=== PATIENT | female | born 1960 | race Caucasian/White ===

== ENCOUNTER 2020-03-26 14:01 | Outpatient (CLI) | payer OTHER, SELFPAY ==
--- NOTE | 2020-03-26 14:11 | MM_ITS ---
WS: [id number] BILATERAL DIGITAL SCREENING MAMMOGRAPHY WITH CAD CLINICAL INFORMATION: SCREENING HISTORY: Screening mammogram. No current complaints. COMPARISON: 2011. TECHNIQUE: Bilateral CC and MLO views. FINDINGS: Scattered fibroglandular densities bilaterally. No suspicious focal mass, asymmetry, calcifications, or architectural distortion. No evidence of malignancy. Small isodense nodules in the inferior medial left breast unchanged since MM/[place] [id number] IMPRESSION: BI-RADS: 2-Benign FOLLOW UP: 1 Year Follow-up Recommend return to annual screening mammography.
== END 2020-03-26 14:02 | disposition home or self-care (01) ==
LOC: RADSHAW 14:07
PROVIDERS: PCP Internal Medicine; Visit Provider Nurse Practitioner Women's Health
DX: Z12.31 Encounter for screening mammogram for malignant neoplasm of breast (principal)
CPT/HCPCS: 77067

== ENCOUNTER 2020-06-11 14:47 | Outpatient (CLI) | payer OTHER, SELFPAY ==
--- NOTE | 2020-06-11 15:15 | XR_ITS ---
WS: [id number] SCREENING DEXA SCAN [facility] CLINICAL INFORMATION: postmenopausal COMPARISON: None. FINDINGS: The L1-L4 bone mineral density measures 1.424 g/cm2. This corresponds to a T score score of 2.0 and Z score of 2.5. Left femoral neck bone mineral density measures 1.19. This corresponds to a T score of 1.5 and Z scor e of 1.9. XR/XR DEXA axial skeleton* [id number] IMPRESSION: Normal bone mineralization. Patient's FRAX calculated 10 year probability for major osteoporotic fracture i s 5.6 % and osteoporotic hip fracture is 0.1%.
== END 2020-06-11 14:48 | disposition home or self-care (01) ==
LOC: RADWPI 14:50
PROVIDERS: PCP Internal Medicine; Visit Provider Nurse Practitioner Women's Health
DX: Z78.0 Asymptomatic menopausal state (principal)
CPT/HCPCS: 77080

== ENCOUNTER → 2021-12-28 08:14 | Outpatient (BNVA) | payer OTHER, SELFPAY | PROVIDERS: PCP Internal Medicine; Referring Provider Internal Medicine; Visit Provider Specialist | DX: M65.30 Trigger finger, unspecified finger (principal) | CPT/HCPCS: 73130 ==

== ENCOUNTER 2022-10-25 09:14 | Outpatient (CLI) | payer OTHER, SELFPAY ==
--- NOTE | 2022-10-25 09:20 | MM_ITS ---
WS: [id number] Bilateral screening 3D tomosynthesis digital mammogram, 10/25/2022 Clinical Data: SCREENING Comparison: 03/26/2020, 03/26/2016, 01/04/2014, 10/26/2011. Findings: The breast parenchymal pattern shows fibroglandular tissue. No spiculated masses or clustered calcifi cations are seen. There are no secondary signs of carcinoma. There are small lymph nodes in both axil la. MM/[place] [id number] Impression: 1. Negative bilateral mammogram unchanged. 2. Recommend annual screening mammograms. BIRADS: 1-Negative FOLLOW UP: 1 Year Follow-up The CAD insurance checker was used.
== END 2022-10-25 09:15 | disposition home or self-care (01) ==
LOC: RAD 09:17
PROVIDERS: PCP Internal Medicine; Visit Provider Nurse Practitioner Women's Health
DX: Z12.31 Encounter for screening mammogram for malignant neoplasm of breast (principal)
CPT/HCPCS: 77063; 77067

== ENCOUNTER 2023-10-26 13:03 | Outpatient (CLI) | payer OTHER, SELFPAY ==
--- NOTE | 2023-10-26 13:30 | XR_ITS ---
WS: [id number] DEXA (DUAL ENERGY X-RAY ABSORPTIOMETRY) Bone mineral density was performed using a Eventp[employer] machine. HISTORY: Z78.0 - Asymptomatic menopausal state COMPARISON: 06/11/2020 Lumbar spine BMD (L1-L4): 1.482 g/cm2 T score: 2.5 Z score: 3.2 Total hip BMD: Left: 1.149 (g/cm2). T score: 1.1 (no units) Z score: 1.7 (no units) 10 year probability of a major osteoporotic fracture is 6.3%. Compared to the prior study from 06/11/2020. Lumbar spine bone mineral density has increased by 4.1%. LEFT hip bone mineral density has decreased by 3.6%. IMPRESSION: NORMAL BONE MINERAL DENSITY based upon the WHO classification for females. Significant increase in bone mineral density within the lumbar spine since the prior study. Significant decrease in bone mineral density in the LEFT hip since the prior study.
--- NOTE | 2023-10-26 14:00 | MM_ITS ---
WS: [id number] BILATERAL 3D TOMOSYNTHESIS DIGITAL SCREENING MAMMOGRAPHY WITH CAD CLINICAL INFORMATION: Z12.31 - Encounter for screening mammogram for malignant ... HISTORY: Screening mammogram. No current complaints. COMPARISON: 2022 TECHNIQUE: Bilateral CC and MLO views. FINDINGS: Scattered fibroglandular densities bilaterally. No suspicious focal mass, asymmetry, calcifications, or architectural distortion. No evidence of malignancy. Stable nodularity and incidental LEFT intrama mmary lymph nodes. IMPRESSION: MM/[place] [id number] BI-RADS: 2-Benign FOLLOW UP: 1 Year Follow-up Recommend return to annual screening mammography.
== END 2023-10-26 13:04 | disposition home or self-care (01) ==
LOC: RAD 13:04
PROVIDERS: PCP Internal Medicine; Visit Provider Nurse Practitioner Women's Health
DX: Z12.31 Encounter for screening mammogram for malignant neoplasm of breast (principal); Z13.820 Encounter for screening for osteoporosis; R92.323 Mammographic fibroglandular density, bilateral breasts; Z78.0 Asymptomatic menopausal state
CPT/HCPCS: 77063; 77067; 77080

== ENCOUNTER → 2024-04-12 10:18 | Outpatient (BNVA) | payer MEDICARE, OTHER, SELFPAY | PROVIDERS: PCP Internal Medicine; Visit Provider Student in an Organized Health Care Education/Training Program | DX: M25.552 Pain in left hip (principal); M70.62 Trochanteric bursitis, left hip; M16.12 Unilateral primary osteoarthritis, left hip | CPT/HCPCS: 20610; 73523; 99204; J3301; J3490 ==

== ENCOUNTER 2024-04-23 06:00 | Outpatient (RCR) | payer MEDICARE, OTHER, SELFPAY | END 2024-04-28 18:00 | disposition home or self-care (01) | LOC: APT 06:00 | PROVIDERS: Visit Provider Student in an Organized Health Care Education/Training Program | DX: M70.72 Other bursitis of hip, left hip (principal) | CPT/HCPCS: 97110; 97161; 97530 ==

== ENCOUNTER 2024-04-29 06:00 | Outpatient (RCR) | payer MEDICARE, OTHER, SELFPAY | END 2024-05-28 23:59 | disposition home or self-care (01) | LOC: APT 06:00 | PROVIDERS: Visit Provider Student in an Organized Health Care Education/Training Program | DX: M70.72 Other bursitis of hip, left hip (principal) | CPT/HCPCS: 97110; 97112; 97530 ==

== ENCOUNTER → 2024-06-06 10:25 | Outpatient (BNVA) | payer MEDICARE, OTHER, SELFPAY | PROVIDERS: Visit Provider Podiatrist Foot & Ankle Surgery | DX: M79.671 Pain in right foot (principal); Q74.2 Other congenital malformations of lower limb(s), including pelvic girdle; L84 Corns and callosities; G57.61 Lesion of plantar nerve, right lower limb | CPT/HCPCS: 73630; 99204 ==

== ENCOUNTER → 2024-07-17 15:03 | Outpatient (BNVA) | payer MEDICARE, OTHER, SELFPAY | PROVIDERS: Visit Provider Student in an Organized Health Care Education/Training Program | DX: M25.552 Pain in left hip (principal); M16.12 Unilateral primary osteoarthritis, left hip | CPT/HCPCS: 99213 ==

== ENCOUNTER → 2024-08-17 08:13 | Outpatient (BNVA) | payer MEDICARE, OTHER, SELFPAY | PROVIDERS: PCP Family Medicine; Visit Provider Student in an Organized Health Care Education/Training Program | DX: M16.12 Unilateral primary osteoarthritis, left hip (principal) | CPT/HCPCS: 20610; 77002; J3301 ==

== ENCOUNTER → 2024-09-04 13:15 | Outpatient (BNVA) | payer MEDICARE, OTHER, SELFPAY | PROVIDERS: PCP Family Medicine; Visit Provider Podiatrist Foot & Ankle Surgery | DX: Q74.2 Other congenital malformations of lower limb(s), including pelvic girdle; L84 Corns and callosities; G57.61 Lesion of plantar nerve, right lower limb | CPT/HCPCS: 99213 ==

== ENCOUNTER → 2024-10-01 11:41 | Outpatient (BNVA) | payer MEDICARE, OTHER, SELFPAY | PROVIDERS: PCP Family Medicine; Visit Provider Family Medicine | DX: E11.65 Type 2 diabetes mellitus with hyperglycemia (principal); E78.2 Mixed hyperlipidemia; F41.9 Anxiety disorder, unspecified | CPT/HCPCS: 83036 ==

== ENCOUNTER → 2024-11-21 09:34 | Outpatient (BNVA) | payer MEDICARE, OTHER, SELFPAY | PROVIDERS: PCP Family Medicine; Visit Provider Student in an Organized Health Care Education/Training Program | DX: M16.12 Unilateral primary osteoarthritis, left hip (principal) | CPT/HCPCS: 99213 ==

== ENCOUNTER → 2024-12-24 11:28 | Outpatient (BNVA) | payer MEDICARE, OTHER, SELFPAY | PROVIDERS: PCP Family Medicine; Visit Provider Family Medicine | DX: E11.65 Type 2 diabetes mellitus with hyperglycemia (principal); E78.2 Mixed hyperlipidemia | CPT/HCPCS: 80053; 80061; 82607; 83036; 84443; 85025 ==

== ENCOUNTER 2025-01-27 05:00 | Outpatient (RCR) | payer MEDICARE, OTHER, SELFPAY | END 2025-02-25 23:59 | disposition home or self-care (01) | LOC: APT 05:00 | PROVIDERS: Visit Provider Student in an Organized Health Care Education/Training Program | DX: M25.511 Pain in right shoulder (principal) | CPT/HCPCS: 97110; 97112; 97140; 97161; 97530 ==

== ENCOUNTER → 2025-01-29 10:07 | Outpatient (BNVA) | payer MEDICARE, OTHER, SELFPAY | PROVIDERS: PCP Family Medicine; Visit Provider Student in an Organized Health Care Education/Training Program | DX: M25.511 Pain in right shoulder (principal); M75.41 Impingement syndrome of right shoulder | CPT/HCPCS: 20610; 73030; 99214; J3301; J9999 ==

== ENCOUNTER 2025-02-26 05:00 | Outpatient (RCR) | payer MEDICARE, OTHER, SELFPAY | END 2025-03-28 23:59 | disposition home or self-care (01) | LOC: APT 05:00 | PROVIDERS: Visit Provider Student in an Organized Health Care Education/Training Program | DX: M25.511 Pain in right shoulder (principal) | CPT/HCPCS: 97110; 97530 ==

== ENCOUNTER 2025-02-28 09:48 | Outpatient (CLI) | payer MEDICARE, OTHER, SELFPAY ==
--- NOTE | 2025-02-28 10:00 | MM_ITS ---
WS: [id number] BILATERAL 3D TOMOSYNTHESIS DIGITAL DIAGNOSTIC MAMMOGRAPHY WITH CAD CLINICAL INFORMATION: left nipple discharge HISTORY: LEFT nipple discharge COMPARISON: 2023. TECHNIQUE: Bilateral CC, MLO, and ML views. FINDINGS: Scattered fibroglandular densities bilaterally. Subareolar nodularity LEFT breast is similar in appearance to 2024. Ultrasound of this area is pending due to nipple discharge. RIGHT breast is unremarkable and unchanged. ULTRASOUND BREAST LEFT TECHNIQUE: Ultrasound left breast focused area of concern. CLINICAL INFORMATION: left nipple discharge FINDINGS: Ultrasound subareolar LEFT breast. Incidental simple cyst retroareolar LEFT breast measuring 9 x 11 mm. Mild underlying ductal ectasia subareolar LEFT breast with intraductal debris. No suspicious cystic or solid lesions subareolar LEFT breast. Comparison subareolar RIGHT breast also demonstrates ductal ectasia with some intraductal debris and otherwise normal in appearance. No suspicious cystic or solid lesions to target for biopsy MM/MM diag BI tomosynthesis [id number] IMPRESSION: DENSITY: There are scattered areas of fibroglandular density. BI-RADS: 2 - Benign. FOLLOW UP: 1 Year Follow-up Recommend return to annual screening mammography.
--- NOTE | 2025-02-28 10:28 | US_ITS ---
WS: [id number] BILATERAL 3D TOMOSYNTHESIS DIGITAL DIAGNOSTIC MAMMOGRAPHY WITH CAD CLINICAL INFORMATION: left nipple discharge HISTORY: LEFT nipple discharge COMPARISON: 2023. TECHNIQUE: Bilateral CC, MLO, and ML views. FINDINGS: Scattered fibroglandular densities bilaterally. Subareolar nodularity LEFT breast is similar in appearance to 2024. Ultrasound of this area is pending due to nipple discharge. RIGHT breast is unremarkable and unchanged. ULTRASOUND BREAST LEFT TECHNIQUE: Ultrasound left breast focused area of concern. CLINICAL INFORMATION: left nipple discharge FINDINGS: Ultrasound subareolar LEFT breast. Incidental simple cyst retroareolar LEFT breast measuring 9 x 11 mm. Mild underlying ductal ectasia subareolar LEFT breast with intraductal debris. No suspicious cystic or solid lesions subareolar LEFT breast. Comparison subareolar RIGHT breast also demonstrates ductal ectasia with some intraductal debris and otherwise normal in appearance. No suspicious cystic or solid lesions to target for biopsy US/US breast LT limited* [id number] IMPRESSION: DENSITY: There are scattered areas of fibroglandular density. BI-RADS: 2 - Benign. FOLLOW UP: 1 Year Follow-up Recommend return to annual screening mammography.
== END 2025-02-28 09:49 | disposition home or self-care (01) ==
PROVIDERS: PCP Family Medicine; Visit Provider Family Medicine
DX: N64.52 Nipple discharge (principal); N60.02 Solitary cyst of left breast
CPT/HCPCS: 76642; 77062; G0279

== ENCOUNTER → 2025-03-28 11:09 | Outpatient (BNVA) | payer MEDICARE, OTHER, SELFPAY | PROVIDERS: PCP Family Medicine; Visit Provider Family Medicine | DX: E11.65 Type 2 diabetes mellitus with hyperglycemia (principal) | CPT/HCPCS: 82043 ==

== ENCOUNTER → 2025-06-27 10:37 | Outpatient (BNVA) | payer MEDICARE, SELFPAY | PROVIDERS: PCP Family Medicine; Visit Provider Family Medicine | DX: E11.65 Type 2 diabetes mellitus with hyperglycemia (principal) | CPT/HCPCS: 83036; 86803 ==

== ENCOUNTER → 2025-07-10 15:08 | Outpatient (BNVA) | payer MEDICARE, OTHER, SELFPAY | PROVIDERS: PCP Family Medicine; Visit Provider Student in an Organized Health Care Education/Training Program | DX: E13.9 Other specified diabetes mellitus without complications (principal); Z01.818 Encounter for other preprocedural examination | CPT/HCPCS: 36415; 80053; 81001; 83036; 85025 ==

== ENCOUNTER 2025-07-16 13:58 | Outpatient (CLI) | payer MEDICARE, OTHER, SELFPAY ==
--- NOTE | 2025-07-16 14:01 | CT_ITS ---
WS: [id number] CT LEFT hip for JORDANA procedure HISTORY: left hip DJD Date: 07/16/2025 2:10 PM COMPARISON: None available. TECHNIQUE: Protocol for JORADNA total hip replacement has been obtained. This includes axial imaging from the hip joint through the knee joint. DLP: [id number] FINDINGS: Advanced arthritis LEFT hip with subchondral cystic change and sclerosis. Hypertrophic changes about the acetabulum and femoral head. Prior postoperative changes RIGHT KACY. Advanced facet arthropathy lower lumbar spine. Vascular calcification. Degenerative arthritis sacroiliac joints. Tiny fat-containing umbilical hernia. CT/CT hip LT [facility] [id number] IMPRESSION: CT imaging provided for JORDANA robotic total hip replacement.
== END 2025-07-16 13:59 | disposition home or self-care (01) ==
LOC: RAD 13:59
PROVIDERS: PCP Family Medicine; Visit Provider Student in an Organized Health Care Education/Training Program
DX: M16.12 Unilateral primary osteoarthritis, left hip (principal); M89.38 Hypertrophy of bone, other site; Z96.641 Presence of right artificial hip joint; Z98.890 Other specified postprocedural states; M47.816 Spondylosis without myelopathy or radiculopathy, lumbar region; I70.90 Unspecified atherosclerosis; M46.1 Sacroiliitis, not elsewhere classified
CPT/HCPCS: 73700

== ENCOUNTER → 2025-07-26 10:44 | Outpatient (BNVA) | payer MEDICARE, OTHER, SELFPAY | PROVIDERS: PCP Family Medicine; Visit Provider Family Medicine | DX: R82.90 Unspecified abnormal findings in urine (principal) | CPT/HCPCS: 87086 ==

== ENCOUNTER 2025-08-05 12:16 | Observation (INO) | payer MEDICARE, OTHER, SELFPAY ==
[2025-08-05] VITALS (24 sets, daily range): BP systolic 84–140; BP diastolic 55–80; PULSE 22–99; RESP 10–22; TEMP 36.1–36.8; O2SAT 91–100; BMI 29.2
--- NOTE | 2025-08-05 08:15 | P.HPUD_ITS ---
Surgery/Procedure H&P Update DATE OF PROCEDURE: August 05, 2025 DATE H&P PERFORMED: 07/10/25 H&P UPDATE INFORMATION: I have reviewed H&P completed within last 30 days, I have examined patient prior to procedure, No changes to prior documentation, H&P is in [facility] EMR on date indicated and Risks and benefits of the procedure reviewed CHANGES TO PREVIOUS DOCUMENTATION: Patient here today will proceed with surgical invention for left total hip arthroplasty?Epi robotic assisted cleared the preoperative clearance process urine culture is negative no new complaints or change in her health since the last office visit. At this point in time patient is ready to proceed with surgical intervention for left total hip arthroplasty understands Anzemet's procedure the risk benefits complication alternatives surgical nonsurgical treatment options. Understanding risk of surgery patient like to proceed with surgical invention. All questions answered at this time. PREOP DIAGNOSIS: Left hip DJD PRIMARY INDICATION FOR PROCEDURE: Left hip DJD PLANNED PROCEDURE: Operation Date: 08/05/25 10:30 Proposed Procedures p LEFT Epi Robot Total Hip Arthroplasty(Left) - Jeremiah Pandey DO
[2025-08-05] MEDS: acetaminophen 1,000 MG/100 ML PIGGYBACK 400 MG IV ×3 (08:22→20:24)
--- NOTE | 2025-08-05 08:24 | ANES.PREANE2 ---
Pre-Anesthetic Assessment Height/Weight: Height 5 ft 4 in Weight 170 lb Temp Pulse Resp BP Pulse Ox O2 Del Method 97 F L 76 18 140/74 96 Room Air 08/05/25 07:58 08/05/25 07:58 08/05/25 07:58 08/05/25 07:58 08/05/25 07:58 08/05/25 07:58 Preop Diagnosis: Left hip DJD Operation Date: 08/05/25 10:30 Proposed Procedures p LEFT Epi Robot Total Hip Arthroplasty(Left) - Jeremiah Pandey, DO Was Beta Magdalene taken within 24 hours: N/A Was Clonidine taken within 24 hours: N/A Last intake: Intake Last Liquid Date 08/04/25 Last Liquid Time 22:00 Last Solid Date 08/04/25 Last Solid Time 17:30 Social No alcohol and No tobacco Exam alert, oriented x 3, clear to auscultation bilaterally and regular rate & rhythm Airway Submandibular: within normal limits Cervical ROM: within normal limits Mallampati: Class III Dentition: full Comments: Comments: Small mouth opening Anesthetic Plan ASA status: 3 Anesthesia: MAC and Regional (specify below) Other: No prior issues with anesthesia NPO since yesterday evening History of type 2 diabetes, no insulin. Preop BS 105 Patient takes chronic tirzepatide, last taken 07/21/2025 Labs reviewed 07/10/2025 and acceptable for procedure today METs greater than 4 Plan for spinal anesthetic Medications/Allergies Home Medications ?Medication ?Instructions ?Recorded ?Confirmed ?Last Taken ?Type nystatin 100,000 unit/gram topical 1 applic topical QID PRN skin 10/18/23 08/01/25 Unknown Rx powder yeast #60 grams rosuvastatin 5 mg tablet 5 mg PO DAILY #90 tabs 10/01/24 08/01/25 08/04/25 Rx blood sugar diagnostic #50 ea 05/19/25 07/19/25 Unknown Rx tirzepatide 15 mg/0.5 mL 15 mg (0.5 mL) SUBCUT .qwk #2 mL 05/25/25 08/01/25 07/21/25 Rx subcutaneous pen injector (Mounjaro) valacyclovir 500 mg tablet 500 mg PO DAILY #90 tabs 06/09/25 08/01/25 08/04/25 Rx (Valtrex) clobetasol 0.05 % topical ointment See Rx Instructions topical 08/01/25 08/01/25 Unknown History .COMPLEX vulvitis Allergies Allergy/AdvReac Type Severity Reaction Status Date / Time metformin Allergy ADR-Diarrhe Verified 07/19/25 13:17 a Penicillins Allergy hives Verified 07/19/25 13:17 Tetracyclines Allergy Itching Verified 07/19/25 13:17 PFS Anesthesia Medical History (Updated 07/19/25 @ 13:48 by Kelsea Coelho MD) No pertinent past medical history neghx: htn,thyroid,dvt/pe PCP: Dr. Coelho Edema, unspecified Hyperlipemia Type 2 diabetes mellitus with hyperglycemia, without long-term current use of insulin Anxiety Genital herpes in women daily valtrex Surgical History Hx of colonoscopy 07.20.24--normal; repeat 10 yrs--[facility] Hx of hysterectomy (~1986) 1986 for benign reasons, still has ovaries. Done in [place] Hx of tubal ligation (~1980) Hx of appendectomy (~1978) History of hip replacement (~2016) R hip Hx of cholecystectomy (~1977) Family History Father Heart disease Diabetes Hypercholesteremia Hypertension Mother Heart disease Hypercholesteremia Sister Breast cancer dx age 50's Diabetes Brother Diabetes Denies family history of Colon cancer Ovarian cancer Uterine cancer Thyroid disease Stroke Social History Smoking and tobacco/nicotine status: former use of tobacco/nicotine Quit status (tobacco/nicotine): has quit using Year quit tobacco: 2008 Alcohol intake: never Substance/Drug Use: never Household members: spouse Marital status: Number of children: 2 Highest education level completed: Master's Degree Previous occupational history: Masters in HR; worked at [employer] Anesthesia 08/05/25 08:25 08/05/25 08:25
[2025-08-05 08:39] LABS: Hematocrit 45.8 % (36-47); Hemoglobin 15.10 g/dL (11.27-16.99); Mean Corpuscular HGB Conc 33.0 g/dL (30-55); Mean Corpuscular Hemoglobin 30.8 pg (27-33); Mean Corpuscular Volume 93.5 fl (85-98); Nucleated Red Blood Cells % 0 %; Platelet Count 292 10^3/cmm (157-399); Red Blood Count 4.90 10^6/uL (3.85-5.65); White Blood Count 7.60 10^3/uL (3.29-11.43)
[2025-08-05] MEDS: ceFAZolin 2,000 MG in sodium chloride 0.9% (plus) 50 ML 100 MG IV ×2 (08:42→18:19)
[2025-08-05 08:57] LABS: Anion Gap 15.5 (5-19); Blood Urea Nitrogen 18 mg/dL (8-23); Calcium 9.0 mg/dL (8.5-10.5); Carbon Dioxide 23 mmol/L (22-29); Chloride 106 mmol/L (98-107); Creatinine Clr Calc Pharmacy 68.5829; Glucose 114 mg/dL (65-115); Osmolality Calculated 293 mOsm/kg (285-295); Potassium 4.5 mmol/L (3.5-5.1); Sodium 140 mmol/L (136-145)
[2025-08-05] MEDS: tranexamic acid 1,000 mg/10mL SDV 1000 MG IV (09:19)
--- NOTE | 2025-08-05 10:55 | W.PM.BPON ---
Date of Procedure: 08/05/2025 Surgeon: Jeremiah Pandey DO Renovator Machine Operator(s): Sanchez Pandey PA-C Procedure(s) performed: Left total hip arthroplasty?Epi robotic assisted (posterior approach) Findings of the procedure(s): Underwent procedure as planned without issues or complications taken recovery in stable condition Estimated blood loss: 100 mL Specimen(s) removed: Femoral head removed as well as acetabular reamings Post-operative diagnosis: Left hip degenerative joint disease
--- NOTE | 2025-08-05 10:56 | P.OP_ITS ---
Operative Report Date of procedure: August 05, 2025 Surgeon: Jeremiah Pandey DO Assistant Clinical Director: Sanchez Pandey PA-C: PA was necessary for assistance in this case with leg positioning, hip reductions, retraction and protection of neurovascular structures as well as assistance total hip prosthesis implantation and assistance in wound closure and dressing application. Procedure: Preop Diagnosis?Left hip degenerative joint disease Post-op diagnosis: Left hip degenerative joint disease Procedure done: Left total hip arthroplasty?robotic assisted Epi?posterior approach Implants: Kendy total hip arthroplasty implants 50 mm cluster hole acetabular shell Alpha code D MDM cementless metal liner Helmetta insignia hip stem high offset size 4 Alpha code D MDM +0 mm head Surgeon: Jeremiah Pandey DO Estimated blood loss: 100 mL IV fluids: 1800 mL Urine output: 300 mL Complications: None Condition: stable Disposition: floor Brief History: Patient's been seen and worked up by myself in the outpatient setting and findings consistent with Left hip degenerative joint disease. Patient has failed conservative treatment this is causing severe pain and decreased mobility on a daily. We talked about his treatment options as far as nonoperative and operative intervention. Patient ultimately through shared decision-making would like to proceed with a Left total hip arthroplasty. we detailed out his risk benefits complications alternatives to surgical and nonsurgical treatment options. Understanding risk for surgery patient elects to proceed with Left total hip arthroplasty robotic assisted Epi utilizing a?posterior approach. All questions answered. Patient elects proceed with surgery today. Procedure: Patient was seen evaluate in preoperative holding area.? Consent was reviewed and signed with patient.? Correct extremity was then marked.? Patient seen evaluate by anesthesia department once cleared for surgery pt was taken back to the operative suite.? Patient underwent spinal anesthesia per the anesthesia department.? This point time pt was then placed on the operative suite and table.? Pt was then placed in lateral decubitus patient worked with the Left hip up.? Patient was secured in the lateral decubitus position with pegboard. All bony prominences well-padded he was properly secured to the bed.? At this point time the Left lower extremity was then prepped and draped in standard orthopedic fashion with care not to drape out the iliac wing for pelvic array placement.? Final timeout performed.? Patient received appropriate preoperative antibiotics. Started off with establishment of my pelvic array pins.? A small longitudinal incision was made directly over the iliac wing.? Sharp scalpel excision through skin and subcutaneous tissue directly onto bone.? Next I then loaded my pelvic pin.? This was then drilled through the iliac wing corridor with excellent fixation.? Next I then loaded the guide which was placed directly onto bone and then subsequently placed 2 more pins to secure fixation.? Next the pelvic array was then sent had excellent visualization with the Epi robot and was secured. EKG pad was placed on the distal lateral aspect of the femur and sterile aseptic technique and use as my distal reference point. Next I proceeded with my standard?posterior approach.? Sharp scalpel through skin and subcutaneous tissue this was centered over the greater trochanter.? I then utilized a Houser elevator over the gluteus roderick fascia.? Next the fascia was then split longitudinally with bipolar electrocautery.? Next a Charnley retractor was then placed.? All bone was then placed into the abductors.? A standard full-thickness release of the piriformis and the short external rotators along with the capsule to grade 1 full thick sleeve for later repair was then placed straight down to the lesser trochanter.? Lesser trochanter was then subsequently identified.? Prior to dislocating the hip we then placed our greater trochanter femur checkpoint.? We marked our appropriate checkpoint for referencing on pelvic array.? At this point in time we then established both of our checkpoints as well as referencing for leg lengths I utilized the EKG pad as my distal reference point. The legs were marked and traced to have appropriate position on the drapes to allow for accurate reading.? Preoperative leg lengths set. Once this was then established I then proceeded with dislocation of the femoral head.? At this point Hohmann's were then placed superiorly and inferiorly along the femoral neck..? The sciatic nerve was protected throughout this case.? At this point time I then utilized the Epi robot and referencing point to reference different aspects along the femoral head and neck for my appropriate neck length.? These were referenced on the inferior mid substance as well as up into the superior shoulder of the femoral neck.? This marked my oscillating saw was used to make my femoral neck cut.? Femoral head was then removed. Next the leg was placed in appropriate position and my anterior and?posterior acetabular retractors then placed.? Next I excised the labrum and then remove the pulvinar.? I did do a small release of the inferior capsule which was severely taut to allow for easier placement of my reamers as well as reduction.? Acetabulum was thoroughly irrigated. At this point in time keeping my retractors in place I subsequently loaded up the [employer] robot for my acetabular reaming.?? Next I then set my 50 reamer under the [employer] robot and subsequently held this with appropriate preplanned preop planned version of 40 degrees of abduction angle as well as 20 degrees of anteversion.? This preoperative plan was then subsequently made to accommodate for ranges of motion of impingement?that was assessed preoperatively utilizing the [employer] robotic software technology. I then subsequently reamed this to the appropriate depth with 50 mm reamer.? We opened up the acetabular shell clusterhole of the 50 mm Helmetta this was then loaded onto my impacting system and then I subsequently impacted this to appropriate depth.? This was then removed from the robot and I used the Epi probe at the center to confirm on the CT scan?that this was down on bone which it was.? This had excellent bite and fixation of the acetabulum this had excellent press-fit fixation as a result no screws were needed. next, opened the alpha code D MDM cementless liner then subsequently placed in appropriate position and impacted into place.? Femoral elevator placed for femoral preparation. At this point time I then utilized a small rongeur to clear off the shoulder of the femoral neck to clear out the soft tissue envelope for my box osteotome.? Next box osteotome was used a canal finder was placed as well as a lateral lysing rattail rasp.? Once I was appropriately lateralized I then sequentially broached up to a size 4 insignia hip stem high offset this was impacted to appropriate depth.? This point I loaded a standard size neck and subsequently reduced the hip.? At this point in time the hip was taken through range of motion before evaluating with the robot on leg lengths.? This had satisfactory leg lengths, the hip was taken through range of motion and had excellent stability with hip flexion and internal rotation with no evidence of instability had an appropriate shuck.? This point time utilized the Epi probe from our femur checkpoint down to her distal checkpoint. Satisfied with this trial implants, at this point I dislocated the hip and then called for my final implants with excellent stability in all planes.? The Helmetta insignia hip stem high offset size 4. My trials were then removed and then subsequently impacted my Helmetta insignia hip stem high offset size 4 to same level. This point in time I trialed up to a +0 mm neck length which helped match with Epi robotic assistance had appropriate leg lengths comparative to the contralateral hip and this was confirmed clinically as well as had excellent stability I felt as though this was best combination with leg lengths being equal as well as with stability and elected for the final +0 mm MDM femoral head. Final MDM femoral head component was then opened and the trunnion was dried and this was impacted with excellent fixation and the hip was subsequently reduced.? We measured our final leg lengths which were appropriate patient had excellent stability in all ranges of motion.? This point time a robotic pins and checkpoints were removed.? I remove the femur checkpoint as well as my pelvic array and iliac wing pins.? Appropriate counts were then made.? This point time thoroughly irrigated the wound bed with pulse lavage.? Vancomycin powder was then sprinkled into the wound bed.? I then performed a standard capsular and external rotator repair utilizing #5 Ethibond and this was tied and repaired through bone tunnels hip, sciatic nerve was protected throughout this portion of the case. Was then kept in abduction external rotation and subsequently closed the fascial layer with Ethibond suture as well as running strata fix suture.? I then closed the deep subcutaneous layer as well as superficial subcutaneous layer with running strata fix suture as well as 3-0strata fix for skin.? Prineo glue dressing was then placed over the skin.? I then irrigated the pelvic array pin site.? There is were then closed with interrupted 0, 2-0 Vicryl suture and Monocryl as well as Prineo glue for the skin.? Incisions were then covered with shante and Silverlon dressing.? Patient was awakened from anesthesia and taken to PACU in stable condition Disposition: Patient taken to PACU in stable condition.? Patient will receive appropriate discharge instructions as well as DVT prophylaxis and pain medication.? Patient will be admitted to the floor for observation should be evaluated by the internal medicine team for medical management.? Patient received appropriate DVT prophylaxis as well as pain medication PT/OT w eightbearing as tolerated Left lower extremity with?posterior hip precautions, Postoperative Abx and TXA.? We will follow-up with patient in the office in 2 weeks.? Patient understands agrees with current plan.? All questions answered.
--- NOTE | 2025-08-05 11:08 | XR_ITS ---
WS: [id number] XR hip LT 2-3V wo/w pel* [id number] REASON FOR EXAM: post op left KACY FINDINGS: Total left hip arthroplasty. Components of the arthroplasty are intact and in proper position and alignment. No focal bony abnormality. XR/XR hip LT 2-3V wo/w pel* [id number] IMPRESSION: Total left hip arthroplasty without abnormality.
--- NOTE | 2025-08-05 11:25 | P.PCN_ITS ---
PACU note Narrative: Patient is a 65-year-old female that just underwent a left total hip arthroplasty. Pt transferred to PACU in stable condition. Dressing is dry. pt is awake and alert. Distal pulses are palpable toes are warm and well- perfused. Cap refill is normal and under 2 seconds. Pain is controlled. Un able to perform any motor or sensory assessment due to residual spinal block. Exam: awake Disposition: admitted
--- NOTE | 2025-08-05 12:30 | ANE.PACU2 ---
Inpatient post-anesthesia follow up: Airway intact: Yes Vital signs: Temperature 98.0 F Pulse Rate 74 Respiratory Rate 15 Blood Pressure 107/69 Pulse Oximetry 98 Oxygen Delivery Me thod Room Air Oxygen Flow Rate Fraction of Inspir ed Oxygen Hydration adequate: Yes Nausea and vomiting: No Pain level: 2 Mental status: Baseline
--- NOTE | 2025-08-05 14:33 | PM.CONSULT ---
Providers/Reason For Consult Consulting Physician/Specialty*: Internal medicine/hospitalist Reason for Consult*: Medical management Requesting Physician: Dr. Pandey Attending Physician: Jeremiah Pandey DO Primary Care Provider: Kelsea Coelho MD History of Present Illness History of Present Illness Lashell Vanessa is a 65 year old female with past medical history of type 2 diabetes mellitus, hyperlipidemia who underwent left total hip arthroplasty today with orthopedic team. Medicine consulted for management of medical problems. Examination patient lying comfortably in bed. Denies any nausea, vomiting, headache. On room air. Awake and alert family at bedside. Blood work prior to the surgery shows white count of 7.6, hemoglobin of 15.1, sodium 140, creatinine of 0.5. Review of Systems General: Reports: 10 or more systems reviewed and unremarkable except in HPI and below Const: Denies: fever(s), chills, body aches, change in appetite, change in weight, malaise, night sweats, diaphoresis, change in sleep pattern, daytime sleepiness or snoring Eyes: Denies: change in vision, blurry vision, photophobia, eye discomfort or eye discharge ENMT: Denies: throat pain, enlarged tonsils, hoarseness, mouth pain, oral sores, dry mouth, tinnitus, nasal congestion or post nasal drip Card: Denies: chest pain, palpitations, irregular heart rhythm, edema, swelling of feet/ankles, lightheadedness, syncope, pre-syncope, dyspnea on exertion, orthopnea, leg pain with exertion or acrocyanosis Resp: Denies: dyspnea, productive cough, non-productive cough, wheezing, stridor, pain on inspiration, change in phlegm color, hemoptysis or chest congestion GI: Denies: abdominal pain, nausea, vomiting, hematemesis, coffee ground emesis, dysphagia, heartburn, diarrhea, constipation, bloating, GI cramping, change in bowel habits, pain on defecation, hematochezia or melena : Denies: flank pain, dysuria, urinary frequency, urinary urgency, urinary hesitancy, nocturia or hematuria Musc: Denies: neck pain, back pain, extremity pain, joint pain, joint swelling, joint redness, joint stiffness or limited range of motion Neuro: Denies: headache(s), numbness in extremities, weakness in extremities, sensory changes, lack of coordination, difficulty walking, frequent falls, dizziness, vertigo, confusion, Slurred speech present, difficulty communicating thoughts or seizure-like activity Psych: Denies: anxiety, depression, mood swings, panic attacks, hopelessness or irritability Endo: Denies: polyuria, polydipsia, tired all the time, cold intolerance, excessive sweating, flushing or heat intolerance Ish/Lymph: Denies: easy bruising or easy bleeding All/Imm: Denies: tongue swelling, facial swelling or acute wheezing Medications/Allergies Home Medications ?Medication ?Instructions ?Recorded ?Confirmed ?Last Taken ?Type nystatin 100,000 unit/gram topical 1 applic topical QID PRN skin 10/18/23 08/01/25 Unknown Rx powder yeast #60 grams rosuvastatin 5 mg tablet 5 mg PO DAILY #90 tabs 10/01/24 08/01/25 08/04/25 Rx blood sugar diagnostic #50 ea 05/19/25 08/05/25 Unknown Rx tirzepatide 15 mg/0.5 mL 15 mg (0.5 mL) SUBCUT .qwk #2 mL 05/25/25 08/01/25 07/21/25 Rx subcutaneous pen injector (Mounjaro) valacyclovir 500 mg tablet 500 mg PO DAILY #90 tabs 06/09/25 08/01/25 08/04/25 Rx (Valtrex) clobetasol 0.05 % topical ointment See Rx Instructions topical 08/01/25 08/01/25 Unknown History .COMPLEX vulvitis Allergies Allergy/AdvReac Type Severity Reaction Status Date / Time metformin Allergy ADR-Diarrhe Verified 07/19/25 13:17 a Penicillins Allergy hives Verified 07/19/25 13:17 Tetracyclines Allergy Itching Verified 07/19/25 13:17 Current Medications Generic Name Dose Route Start Last Admin Trade Name Freq PRN Reason Stop Dose Admin Acetaminophen 1,000 mg in 100 mls @ 400 mls/hr 08/05/25 12:21 08/05/25 13:12 Acetaminophen IV 08/06/25 04:35 Infused Q8H SHAWN Infusion Lactated Ringer's 1,000 mls @ 100 mls/hr 08/05/25 12:21 08/05/25 12:58 Lactated Ringers IV 100 mls/hr .Q10H SHAWN Administration Ketorolac Tromethamine 15 mg 08/05/25 12:21 08/05/25 14:17 Ketorolac 30 Mg/Ml Inj IVP 15 mg Q6H PRN Administration MODERATE TO SEVERE PAIN PFSH Acute PFSH: Medical History (Updated 08/05/25 @ 16:41 by Phoenix Duval MD) No pertinent past medical history neghx: htn,thyroid,dvt/pe PCP: Dr. Coelho Edema, unspecified Hyperlipemia Type 2 diabetes mellitus with hyperglycemia, without long-term current use of insulin Anxiety Genital herpes in women daily valtrex Surgical History (Updated 08/05/25 @ 16:41 by Phoenix Duval MD) Hx of colonoscopy 07.20.24--normal; repeat 10 yrs--[facility] Hx of hysterectomy (~1986) 1986 for benign reasons, still has ovaries. Done in [place] Hx of tubal ligation (~1980) Hx of appendectomy (~1978) History of hip replacement (~2016) R hip Hx of cholecystectomy (~1977) Family History Father Heart disease Diabetes Hypercholesteremia Hypertension Mother Heart disease Hypercholesteremia Sister Breast cancer dx age 50's Diabetes Brother Diabetes Denies family history of Colon cancer Ovarian cancer Uterine cancer Thyroid disease Stroke Social History Smoking and tobacco/nicotine status: former use of tobacco/nicotine Quit status (tobacco/nicotine): has quit using Year quit tobacco: 2008 Alcohol intake: never Substance/Drug Use: never Household members: spouse Marital status: Number of children: 2 Highest education level completed: Master's Degree Previous occupational history: Masters in HR; worked at [employer] [place] Vitals/I&O/Wt Last Vital Signs Temp 98.0 F 08/05/25 13:50 Pulse 74 08/05/25 13:50 Resp 15 08/05/25 13:50 BP 107/69 08/05/25 13:50 Pulse Ox 98 08/05/25 13:50 O2 Del Method Room Air 08/05/25 13:50 08/04/25 08/05/25 08/05/25 22:59 06:59 14:59 Intake Total 2049 Output Total 400 / 400 Balance 1650 / 1650 Weight last 48 hrs Weight 77.111 kg Physical Exam Narrative: General: No acute distress, AO x3 HEENT: PERRLA, pupils bilaterally equal and reactive Chest: Normal vesicular breath sounds, no added sounds, equal good air entry bilaterally CVS: S1-S2 regular, no murmurs, no tachycardia, no gallops, no rubs Abdomen: Soft, nontender, no organomegaly, bowel sounds present Neuro: No focal deficits, no facial deformity, AO x3, power 5/5 in all limbs Urinary Catheter Management: Kaur Latex Free: Cath Placed During This Visit: yes Urinary Catheter Date of Insertion: 08/05/25 Urinary Catheter Time of Insertion: 09:00 Data 08/05/25 08:25 08/05/25 08:25 A&P Assessment and plan 1. Encounter for postoperative care: Post left hip arthroplasty. Perioperative antibiotic, pain management, physical therapy, anticoagulation as per primary team. Monitor hemoglobin. 2. S/P total left hip arthroplasty: 3. Hyperlipemia: Check lipid panel. Continue with home dose of rosuvastatin. 4. Type 2 diabetes mellitus with hyperglycemia, without long-term current use of insulin: Appreciate recent A1c of 5.3. Patient takes Mounjaro at home. Carb consistent diet for now. Hold off on insulin. Plan: Full code Carb consistent diet Eliquis for DVT prophylaxis Thank you for involving us in care of Mr. Vanessa. Please call with any questions. PDMP PDMP Reviewed: Not Reviewed Consult Attestations Medical Necessity Statement: As per primary team. Diagnoses Encounter for postoperative care Z48.89 S/P total left hip arthroplasty Z96.642 Hyperlipemia E78.5 Type 2 diabetes mellitus with hyperglycemia, without long-term current use of insulin E11.65 Diabetes mellitus type: type 2 Diabetes mellitus longitudinal float operator insulin use: without fpc use Diabetes mellitus complication status: with hyperglycemia
[2025-08-05] MEDS: oxyCODONE 5 mg IR Tab/Cap PO (15:39)
[2025-08-05] MEDS: tranexamic acid 1,000 MG/100 ML PREMIX 600 MG IV (15:40)
[2025-08-05 16:17] LABS: Iron 64 ug/dL (37-145); Total Iron Binding Capacity 271 mcg/dl; Unsaturated Iron Binding 207 ug/dL (112-347)
[2025-08-05] MEDS: sennosides-docusate Tablet 2 TAB PO (18:19)
[2025-08-05] MEDS: calcium carb-vit d 600mg/400unit 1 Tablet 1 EACH PO (18:19)
--- OUTSIDE RECORDS SUMMARY | 2025-08-05 21:42 | XMS_ITS | Encounter Summary ---
Author Organization [facility] Address [address] [place] [address] Care Team Providers Care Permastone Mechanic Name Role Phone Zahira Saxena MD Primary Care Provider + [phone] Reason for Referral * Outpatient Services (Routine) - Closed Specialty Diagnoses / Procedures Referred By Kristal coto Referred To Contact Diagnoses Disorder of sacrum Procedures XR FLUORO NEEDLE GUIDANCE Akbar Padron MD Referral ID Status Reason Start Date Expiration Date Visits Re quested Visits Authorized [id number] Closed 11/24/2015 12/24/2016 1 1 Encounter Details Date Type Department Care Team (Late st Contact Info) Description 11/24/2015 Ancillary Orders [facility] Pain Management Procedures [place] [address] [place] [id number] Akbar Padron MD NO ADDRESS ON FILE Disorder of sacrum (Primary Dx) Social History Tobacco Use Types Packs/Day Years Used Date Smoking Tobacco: Never Alcohol Use Standard Drinks/Week Comments No 0 (1 standard drink = 0.6 oz pur e alcohol) Comments Unknown Sex and Gender Information Value Date Recorded Sex Assigned at Not on file Legal Sex Female 12:12 PM CDT Gender Identity Not on file Sexual Orientation Not on file documented as of this encounter Plan of Treatment Not on file documented as of this encounter Results * XR FLUORO NEEDLE GUIDANCE (11/24/2015 8:01 AM CDT) Narrative Anai Davila RT - 11/24/2015 8:04 AM CDT Order information only. Exam was auto-finalized. us Akbar Padron MD DIAGNOSTIC IMAGING ORDERAB LES Final Result documented in this encounter Visit Diagnoses Diagnosis Disorder of sacrum- Primary Disorders of sacrum Disorder of sacrum Disorders of sacrum documented in this encounter Care Teams Permastone Mechanic Relationship Specialty Start Date End Date Zahira Saexna MD [address] [place] [phone] PCP - General Family Practice 11/20/15 documented as of this encounter
--- OUTSIDE RECORDS SUMMARY | 2025-08-05 21:42 | XMS_ITS | Clinical Summary ---
Author Organization [facility] e Address [address] [place] [address] Care Team Providers Care Lean Six Sigma Black Belt Name Role Phone Zahira Saxena MD Primary Care Provider [phone] Allergies Active Allergy Reactions Criticality Noted Date Comments Penicillins Fever Low 11/17/2015 Tetracycline Swelling Low 11/17/2015 Medications CITALOPRAM HYDROBROMIDE (CITALOPRAM ORAL) Take by mouth. Active HYDROCHLOROTHIAZID E ORAL Take by mouth. Active ACETAMINOPHEN (TYLENOL ORAL) Take by mouth. Active GUAIFENESIN/DEXTRO METHORPHAN (MUCINEX COUGH ORAL) Take by mouth. Active Active Problems Problem Noted Date Diagnosed Date Status post total replacemen t of right hip,sx 04/26/16 w/Dr Ward 05/10/2016 Preoperative general physical examination 2015 Obesity (BMI 30.0-34.9) 04/12/2016 Insomnia, unspecified Unspecified essential hypertension Other and unspecified hyperlipidemia Genital herpes, unspecified Essential hypertension Hyperlipidemia Anxiety Family History Medical History Relation Name Comments Diabetes Brother 3 Nelson Kidney Disease Brother 3 Nelson Other Brother 3 Nelson lupus Healthy Daughter Michelle Diabetes Father Heart Disease Father Hypertension Father Diabetes Mother Heart Disease Mother High Cholesterol Mother Hypertension Mother Other Mother macular degener ation Heart Disease Sister 1 Diabetes Sister 2 Diabetes Sister 3 Daja Breast Cancer Sister 4 Sharifa Heart Disease Sister 4 Sharifa High Cholesterol Son Mik Relation Name Status Comments Brother 1 Alive Brother 2 Alive Brother 3 Nelson (Age 68) Daughter Michelle Alive Father (Age 92) Mother Alive Sister 1 Alive Sister 2 Alive Sister 3 Daja Alive Sister 4 Sharifa Alive Son Mik Alive Social History Tobacco Use Types Packs/Day Years Used Date Smoking Tobacco: Former Cigarettes 0.8 Q uit: 04/12/2009 Smokeless Tobacco: Never Alcohol Use Standard Drinks/Week Comments No 0 (1 standard drink = 0.6 oz pur e alcohol) Comments No Sex and Gender Information Value Date Recorded Sex Assigned at Not on file 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 Gender Identity Not on file Sexual Orientation Not on file Last Filed Vital Signs Vital Sign Reading Time Taken Comments Blood Pressure 125/77 04/26/2017 11:29 AM CDT Pulse 74 04/26/2017 11:29 AM CDT Temperature 36.4 C (97.6 F) 04/28/2016 10:32 AM CDT Respiratory Rate 16 04/28/2016 10:32 AM CDT Oxygen Saturation 98% 10/11/2015 9:22 AM POULTRY HUSBANDRY TEACHER Inhaled Oxygen Concentration - - Weight 96.6 kg (213 lb) 04/26/2017 11:29 AM CDT Height 162.6 cm (5' 4 ) 04/26/2017 11:29 AM CDT Body Mass Index 36.56 04/26/2017 11:29 AM CDT Plan of Treatment Health Maintenance Due Date Last Done Comments DTAP/TDAP/TD VACCINES (1 - Tdap) 1977 COLORECTAL SCREENING 2003 Colorectal Cancer Screening 2003 FIT-DNA Q 3 years 2003 FIT/FOBT Q 1 year 2003 Flex Sig/CT Colonography Q 5 years 2003 PNEUMOCOCCAL VACCINE 50+ YEARS (1 of 1 - PCV) 01/06/20 08 ZOSTER VACCINE (1 of 2) 01/06/2008 BREAST CANCER SCREENING 09/07/2008 09/07/2007 OSTEOPOROSIS SCREENING 2023 INFLUENZA VACCINE (#1) 2025 RSV VACCINE (60+ or ) (1 - 1-dose 75+ series) 2033 Medical Devices Implanted Type Area Tool Keeper Device Identifier Shelf Expiration Date Model / Serial / Lot Cup Pinn Sctr Series 52mm 1217-22-052 - [id number] Implanted:Qty : 1 on 04/26/2016 by Ashok Ward MD Hip Right: Hip [employer] [id number] 02/25/2026 [id number] / / [id number] Description:cap pricing per vendor invoice (n/c item) Head Fem Art/Petr Cer Sz36 1365-36-310 - [id number] Implanted:Qty : 1 on 04/26/2016 by Ashok Ward MD Hip Right: Hip [employer] [id number] 01/26/2021 1365-36-310 / / [id number] Description:cap pricing per vendor invoice (n/c item) Liner Pinn Altrx Poly 1221-36-052 - [id number] Implanted:Qty : 1 on 04/26/2016 by Ashok Ward MD Hip Right: Hip [employer] [id number] 02/25/2021 [id number] / / [id number] Description:cap pricing per vendor invoice (n/c item) Stem Fem Teller Por Sz6 1570-01-120 - [id number] Implanted:Qty : 1 on 04/26/2016 by Ashok Ward MD Hip Right: Hip [employer] [id number] 02/25/2026 1570-01-120 / / [id number] Description:cap pricing per vendor invoice (n/c item) Insurance [facility] Care Teams Lean Six Sigma Black Belt Relationship Specialty Start Date End Date Zahira Saxena MD [address] [place] [address] PCP - General Family Practice 11/20/15
--- OUTSIDE RECORDS SUMMARY | 2025-08-05 21:42 | XMS_ITS | Encounter Summary ---
Author Organization [employer] [facility] Address 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
--- OUTSIDE RECORDS SUMMARY | 2025-08-05 21:42 | XMS_ITS | Clinical Summary ---
Author Organization [facility] Address [address] [place] [address] Care Team Providers Care Assistant Director Of Residence Life Name Role Phone Zahira Saxena MD Primary Care Provider Allergies Active Allergy Reactions Criticality Noted Date Comments Penicillins Fever Low 11/17/2015 Tetracycline Swelling Low 11/17/2015 Medications hydrochlorothiaz amber (HYDRODIURIL) 12.5 mg tablet Take 12.5 mg by mouth daily. Active valACYclovir (VALTREX) 500 mg tablet Take 500 mg by mouth daily . Active MULTIVITAMIN WITH MINERALS (ONE-A-DAY 50 PLUS ORAL) Take by mouth daily . Active guaiFENesin (MUCINEX) 600 mg Extended Release Biphasic tablet Take by mouth. Active citalopram (CeleXA) 20 mg tablet Take 20 mg by mouth daily at bedtime. Active meloxicam (MOBIC) 15 mg tablet TAKE 1 TABLET BY MOUTH DAILY 90 Tablet 02/24/2017 Active Active Problems Problem Noted Date Diagnosed Date Status post total replacemen t of right hip,sx 04/26/16 w/Dr Ward 05/10/2016 Preoperative general physical examination 2015 Obesity (BMI 30.0-34.9) 04/12/2016 Essential hypertension Hyperlipidemia Anxiety Resolved Problems Problem Noted Date Diagnosed Date Resolved Date Primary osteoarthritis of right hip 12/24/2015 04/21/2017 Family History Medical History Relation Name Comments Diabetes Brother Nelson Kidney Disease Brother Nelson Other Brother Nelson lupus Healthy Daughter Michelle Diabetes Father Heart Disease Father Heart Disease Mother High Cholesterol Mother Other Mother macular degener ation Breast Cancer Sister 1 Sharifa Heart Disease Sister 1 Sharifa Diabetes Sister 2 Daja High Cholesterol Son Mik Relation Name Status Comments Brother Nelson (Age 68) Daughter Michelle Alive Father (Age 92) Mother Alive Sister 1 Sharifa Alive Sister 2 Daja Alive Son Mik Alive Social History Tobacco Use Types Packs/Day Years Used Date Smoking Tobacco: Former Cigarettes 0.8 30 0 04/12/1979 - 04/12/2009 Smokeless Tobacco: Never Alcohol Use Standard [...] 16 04/28/2016 10:32 AM CDT Oxygen Saturation 96% 04/28/2016 10:32 AM CDT Inhaled Oxygen Concentration - - Weight 96.6 kg (213 lb) 04/26/2017 11:29 AM CDT Height 162.6 cm (5' 4 ) 04/26/2017 11:29 AM CDT Body Mass Index 36.56 04/26/2017 11:29 AM CDT Plan of Treatment Health Maintenance Due Date Last Done Comments DTAP/TDAP/TD VACCINES (1 - Tdap) 1977 BREAST CANCER SCREENING 1998 COLORECTAL SCREENING 2003 Colorectal Cancer Screening 2003 FIT-DNA Q 3 years 2003 FIT/FOBT Q 1 year 2003 Flex Sig/CT Colonography Q 5 years 2003 PNEUMOCOCCAL VACCINE 50+ YEARS (1 of 1 - PCV) 01/06/20 08 ZOSTER VACCINE (1 of 2) 01/06/2008 OSTEOPOROSIS SCREENING 2023 INFLUENZA VACCINE (#1) 2025 RSV VACCINE (60+ or ) (1 - 1-dose 75+ series) 2033 Medical Devices Implanted Type Area Bulbs Farmworker Device Identifier Shelf Expiration Date Model / Serial / Lot Cup Pinn Sctr Series 52mm 1217-22-052 - [id number] Implanted:Qty: 1 on 04/26/2016 by Ashok Ward MD at [facility] Hip Right: Hip [employer] [id number] 02/25/2026 [id number] / / [id number] Description:cap pricing per vendor invoice (n/c item) Liner Nagan Altrx Poly 1221-36-052 - [id number] Implanted:Qty: 1 on 04/26/2016 by Ashok Ward MD at [facility] Hip Right: Hip [employer] [id number] 02/25/2021 [id number] / / [id number] Description:cap pricing per vendor invoice (n/c item) Stem Fem Okay Por Sz6 1570-01-120 - [id number] Implanted:Qty: 1 on 04/26/2016 by Ashok Ward MD at [facility] Hip Right: Hip [employer] [id number] 02/25/2026 1570-01-120 / / [id number] Description:cap pricing per vendor invoice (n/c item) Head Fem Art/Petr Cer Sz36 1365-36-310 - [id number] Implanted:Qty: 1 on 04/26/2016 by Ashok Ward MD at [facility] Hip Right: Hip [employer] [id number] 01/26/2021 1365-36-310 / / [id number] Description:cap pricing per vendor invoice (n/c item) Insurance [facility] [place] [address] Advance Directives For more information, please contact: [phone] * Full Code (Latest Code Status on File) Date Activated Date Inactivated Comments 04/26/2016 3:33 PM 04/28/2016 7:13 PM * Full Code Date Activated Date Inactivated Comments 04/26/2016 10:49 AM 04/26/2016 3:33 PM * Full Code Date Activated Date Inactivated Comments 04/26/2016 7:57 AM 04/26/2016 10:49 AM Care Teams Assistant Director Of Residence Life Relationship Specialty Start Date End Date Zahira Saxena MD [address] [place] [address] PCP - General Family Practice 11/20/15
--- OUTSIDE RECORDS SUMMARY | 2025-08-05 21:42 | XMS_ITS | Encounter Summary ---
Author Organization [facility] Address [address] [place] [address] Care Team Providers Care Textile Scrap Salvager Name Role Phone Zahira Saxena MD Primary Care Provider + [phone] Encounter Details Date Type Department Care Team (Late st Contact Info) Description 06/29/2019 Lab Requisition [facility] [address] [place] [address] David Cooley DO [address] [address] Social History Tobacco Use Types Packs/Day Years [...] on file documented as of this encounter Procedures Procedure Name Priority Date/Time Associated Diagnosis Comments HEMOGLOBIN A1C Routine 06/29/2019 8:07 AM CDT LIPID PANEL Routine 06/29/2019 8:07 AM CDT documented in this encounter Results * (ABNORMAL) HEMOGLOBIN A1C (06/29/2019 8:07 AM CDT) HEMOGLOBIN A1C 6.7(H) <=5.6 % 07/02/2019 11:08 AM GOLF SUPERINTENDENT [facility] EST. AVG GLUCOSE, A1C 146 mg/dL 07/02/2019 11:08 AM GOLF SUPERINTENDENT [facility] Blood Collection / Unknown 06/29/2019 8:07 AM CDT 06/29/2019 5:06 PM CDT [facility] - 07/02/2019 11:08 AM GOLF SUPERINTENDENT HGB A1C INTERPRETATION NORMAL: <5.7% PRE-DIABETES: 5.7 - 6.4% DIABETES: 6.5% OR GREATER us David Cooley DO CHEMISTRY ORDERABLES Final R esult [facility] CLIA# [id number] Critical access [facility] [place] [address] * (ABNORMAL) LIPID PANEL (06/29/2019 8:07 AM CDT) CHOLESTEROL 338(H) <200 mg/dL 06/29/2019 6:11 PM CDT [facility] TRIGLYCERIDE 200(H) <150 mg/dL 06/29/2019 6:11 PM T [facility] HDL 64(H) 40 - 59 mg/dL 06/29/2019 6:11 PM T [facility] LDL CALCULATED 234(H) <100 mg/dL 06/29/2019 6:11 PM T [facility] NON-HDL CHOLESTEROL 274(H) <130 mg/dL 06/29/2019 6:11 PM T [facility] Blood Collection / Unknown 06/29/2019 8:07 AM CDT 06/29/2019 5:24 PM CDT [facility] - 06/29/2019 6:11 PM CDT TOTAL CHOLESTEROL mg/dL Desirable <200 Borderline high 200-239 High >=240 TRIGLYCERIDES mg/dL Normal <150 Borderline high 150-199 High 200-499 Very high >=500 HDL CHOLESTEROL mg/dL Low <40 Normal 40-59 Desirable >=60 NON HDL CHOLESTEROL mg/dL Optimal <130 Near Optimal 130-159 Borderline High 160-189 Very High >=190 Calculated LDL mg/dL Optimal <100 Near Optimal 100-129 Borderline High 130-159 High 160-189 Very High >=190 ATPIII Guidelines Reference Ranges for Lipid Panels (NCEP/AMA) us David Cooley DO CHEMISTRY ORDERABLES Final R esult [facility] CLIA# [id number] [address] [place] [id number] documented in this encounter Visit Diagnoses Not on filedocumented in this encounter Care Teams Textile Scrap Salvager Relationship Specialty Start Date End Date Zahira Saxena MD [address] [place] [address] PCP - General Family Practice 11/20/15 documented as of this encounter
--- OUTSIDE RECORDS SUMMARY | 2025-08-05 21:42 | XMS_ITS | Encounter Summary ---
Author Organization [facility] Address [address] [place] [address] [address] Providers Care Drive Away Driver Name Role Phone Zahira Saxena MD Primary Care Provider + [phone] Encounter Details Date Type Department Care Team (Late st Contact Info) Description 09/04/2007 Outpatient [facility] [place] [facility] [address] [facility] [address] Denise Rhodes MD [address] [facility] [address] [address] Other Screening Mammogram Social History Tobacco Use Types Packs/Day Years Used Date Smoking Tobacco: Never Assessed Comments Unknown Sex and Gender Information Value Date Recorded Sex Assigned at Not on file 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
--- OUTSIDE RECORDS SUMMARY | 2025-08-05 21:43 | XMS_ITS | Encounter Summary ---
Author Organization [facility] Address [address] [place] [address] Care Team Providers Care Angle Roll Operator Name Role Phone Zahira Saxena MD Primary Care Provider [phone] Encounter Details Date Type Department Care Team (Late st Contact Info) Description 06/16/2007 Outpatient Historical 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
--- OUTSIDE RECORDS SUMMARY | 2025-08-05 21:43 | XMS_ITS | Encounter Summary ---
Author Organization [facility] Address [address] [place] [address] Care Team Providers Care Scalehouse Attendant Name Role Phone Zahira Saxena MD Primary Care Provider + [phone] Encounter Details Date Type Department Care Team (Late st Contact Info) Description 07/27/2007 Outpatient Historical [facility] [address] [place] [address] Denise Rhodes MD [address] [place] [address] Social History Tobacco Use Types Packs/Day Years Used Date Smoking Tobacco: Never Assessed Comments Unknown Sex and Gender Information Value Date Recorded Sex Assigned at Not on file 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
--- OUTSIDE RECORDS SUMMARY | 2025-08-05 21:43 | XMS_ITS | Encounter Summary ---
Author Organization [facility] Address [address] [place] [address] Care Team Providers Care Package Center Supervisor Name Role Phone Zahira Saxena MD Primary Care Provider + [phone] Encounter Details Date Type Department Care Team (Late st Contact Info) Description 11/17/2006 Outpatient Historical [facility] [place] [address] [place] [address] Denise Rhodes MD [address] [place] [address] Social History Tobacco Use Types Packs/Day Years Used Date Smoking Tobacco: Never Assessed Comments Unknown Sex and Gender Information Value Date Recorded Sex Assigned at Not on file 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
--- OUTSIDE RECORDS SUMMARY | 2025-08-05 21:43 | XMS_ITS | Encounter Summary ---
Author Organization [facility] Address [address] [place] [address] Care Team Providers Care Partner Name Role Phone Zahira Saxena MD Primary Care Provider + [phone] Encounter Details Date Type Department Care Team (Late st Contact Info) Description 09/19/2006 Outpatient Historical [facility] [address] [place] [address] Denise Rhodes MD [address] [place] [address] Social History Tobacco Use Types Packs/Day Years Used Date Smoking Tobacco: Never Assessed Comments Unknown Sex and Gender Information Value Date Recorded Sex Assigned at Not on file 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
--- OUTSIDE RECORDS SUMMARY | 2025-08-05 21:43 | XMS_ITS | Data Portability ---
Author Organization LOU Hahn [facility] Uzma, [facility] Address [address] [address] Assessment Encounter Date Assessment Date Assessment LastModified by Organization Details LastModified Time 06/14/2024 06/14/2024 Patient presente d to office today for their Medicare Annual Wellness Visit. Education was provided on healthy nutrition, including a diet rich in fruits and vegetables, minimizing simple carbohydrates, salt, and saturated fats. Encouraged regular cardiovascular exercise such as walking at least 30 minutes daily, 5 times per week. Emphasized preventive health measures and educated pt on fall prevention and community-based lifestyle interventions to help reduce health risks and promote healthy living. Not available 06/14/2024 12:28:22 Plan of Treatment Reminders Order Date Submit Date Provider Last Modified By Organization Details Last Modified Time Details Appointments None recorded. Lab microalbumi n/creatinin e, mass ratio, urine 2023 024 [email or web address] 9 [facility], [address] [place] [address], [facility] [address] [place], [address], 5 10:05:31 HbA1c (hemoglobin A1c), [facility] [address] [place], [address], 4 11:42:35 TSH, serum or plasma 2023 024 [email or web address] 9 Not available 5 10:05:32 noninvasive colorectal cancer DNA + occult blood screening, , stool 2023 024 [email or web address] 9 [facility], [address], [address], [place], [address], 4 10:16:48 CMP, serum or plasma 2023 024 [facility], [facility], [address] [facility], [facility], [place], [address], 4 11:46:15 lipid panel, blood 2023 024 [facility], [address] [facility], [facility] [address], [address], 4 11:46:18 CBC 2023 024 [facility], [address] [facility], [address], [address], 4 11:25:58 HbA1c (hemoglobin A1c), blood 2023 024 [facility] ([facility]), [address] [place], [address], 4 10:51:42 BMP, serum or plasma 2023 024 [facility], [facility], [address] [facility], [facility] 1, [place], [address], 4 10:50:04 Referral gastroenter ologist referral 2023 024 [email or web address] 2 Not available 08:46:01 orthopedic surgeon referral 2023 024 [facility], [address] [place], [address], 4 11:41:10 Procedures None recorded. Surgeries None recorded. Imaging bone density 2023 024 [facility] ([facility]uling [facility]), [address] [place], [address], 4 09:41:20 XR, hip, unilateral, 2 or 3 view 2023 024 [email or web address] 2 [facility] ([facility]), [address] [place], [address], 4 09:56:43 Medication Orders rosuvastati n 10 mg tablet 2023 024 [facility], [address] [place], [address], 4 10:48:34 rosuvastati n 10 mg tablet 2023 024 [facility], [address] [place], [address], 4 10:50:29 Jardiance 10 mg tablet 2023 024 [facility], [address] [place], [address], 4 10:50:31 Patient TargetsNo targets recorded. Patient Instructions Encounter Date Encounter Id Patient Instructions Last Modified By Organization Details Last Modified Time 10/19/2023 [id number] a1c much worse; she drinks sweet tea and eating out a lot retires next week and she is going to get extreme on diet ozempic not covered but new insurance in October Not available 10/19/2023 11:27:35 02/20/2024 [id number] a1c much better since prison lots of pain in hip; xray today [email or web address] Not available 02/20/2024 10:49:20 06/14/2024 [id number] advance care planning: care instructions [email or web address] Not available 06/14/2024 12:06:38 nutrition for older adults: care instructions Not available 06/14/2024 12:06:38 preventing falls : care instructions Not available 06/14/2024 12:06:37 Learning About Being Physically Active [email or web address] Not available 06/14/2024 12:06:37 Discussed and explained advance directives such as standard forms to the patient. Not available 07/12/2024 09:53:18 07/04/2024 [id number] cholesterol too high; increase to daily statin a1c pending, but she is frustrated with weight + cologuard; willing to get colonoscopy [email or web address] Not available 07/04/2024 10:45:55 Reason for Referral Orthopedic Surgeon Referral for Pain of left hip joint Referring Physician: Andrew Vargas, Internal Medicine, Encounter Date: 02/20/2024 [facility] Referral for Screening for malignant neoplasm of colon Referring Physician: Andrew Vargas, Internal Medicine, Encounter Date: 07/04/2024 Results Created Date Observation Date Name Description Value Unit Range Abnormal Flag Note LastModifiedBy Organization Detail LastModifiedTime 09/14/19 24 09/14/2023 BMP (FEMA LE) glucose 157.0 mg/dL 60.0-9 9.0 high Not Available [facility] [address] [address], [place], [address], 09/14/2023 10:50:03 09/14/19 24 09/14/2023 BMP (FEMA LE) BUN (blood urea nitrogen) 16.0 mg/dL 10.0-2 6.0 Not Available [facility] [address] [facility] 1, [place], [address], 09/14/2023 10:50:03 09/14/19 24 09/14/2023 BMP (FEMA LE) creatinine (serum) 0.6 mg/dL 0.4-1. 5 Not Available [facility] [address] [facility] 1, [place], [address], 09/14/2023 10:50:03 09/14/19 24 09/14/2023 BMP (FEMA LE) BUN/creatini ne ratio 25.81 ratio Not Available [facility] [address] [facility], [place], [address], 09/14/2023 10:50:03 09/14/19 24 09/14/2023 BMP (FEMA LE) calcium 9.0 mg/dL 8.4-10 .5 Not Available [facility] [address] [facility], [place], [address], 09/14/2023 10:50:03 09/14/19 24 09/14/2023 BMP (FEMA LE) sodium 139.0 mmol/ L 136.0- 145.0 Not Available [facility] [address] [facility], [place], [address], 09/14/2023 10:50:03 09/14/19 24 09/14/2023 BMP (FEMA LE) potassium 3.8 mmol/ L 3.5-5. 1 Not Available [facility] [address] [facility], [place], [address], 09/14/2023 10:50:03 09/14/19 24 09/14/2023 BMP (FEMA LE) chloride 105.0 mmol/ L 98.0-1 10.0 normal Not Available [facility] [address] [facility], [place], [address], 09/14/2023 10:50:03 09/14/19 24 09/14/2023 BMP (FEMA LE) C02 32.0 mmol/ L 22.0-3 1.0 high Not Available [facility] [address] [place] [address] [facility] 1, [place], [address], 09/14/2023 10:50:03 09/14/19 24 09/14/2023 BMP (FEMA LE) anion gap 2.0 calc Not Available [facility] [address] [place] [address] [facility] 1, [place], [address], 09/14/2023 10:50:03 09/14/19 24 09/14/2023 HbA1c (hemo globi n A1c), blood HbA1c 8.2 Not Available [facility] ([facility]) [address] [place], [address], 09/14/2023 09:06:22 02/14/20 24 02/14/2024 BMP (MALE ) glucose 104.0 mg/dL 60.0-9 9.0 high Not Available [facility] [address] [address], [place], [address], 02/14/2024 14:34:21 02/14/20 24 02/14/2024 BMP (MALE ) BUN (blood urea nitrogen) 20.0 mg/dL 10.0-2 6.0 Not Available [facility] [address] [address], [place], [address], 02/14/2024 14:34:21 02/14/20 24 02/14/2024 BMP (MALE ) creatinine (serum) 0.6 mg/dL 0.4-1. 5 Not Available [facility] [address] [address], [place], [address], 02/14/2024 14:34:21 02/14/20 24 02/14/2024 BMP (MALE ) BUN/creatini ne ratio 33.90 ratio Not Available [facility] [address] [address], [place], [address], 02/14/2024 14:34:21 02/14/20 24 02/14/2024 BMP (MALE ) calcium 9.4 mg/dL 8.4-10 .5 Not Available [facility] [address] [address], [place], [address], 02/14/2024 14:34:21 02/14/20 24 02/14/2024 BMP (MALE ) sodium 141.0 mmol/ L 136.0- 145.0 Not Available [facility] [address] [facility] 1, [place], [address], 02/14/2024 14:34:21 02/14/20 24 02/14/2024 BMP (MALE ) potassium 4.2 mmol/ L 3.5-5. 1 Not Available [facility] [address] [facility] 1, [place], [address], 02/14/2024 14:34:21 02/14/20 24 02/14/2024 BMP (MALE ) chloride 109.0 mmol/ L 98.0-1 10.0 normal Not Available [facility] [address] [facility] 1, [place], [address], 02/14/2024 14:34:21 02/14/20 24 02/14/2024 BMP (MALE ) C02 28.0 mmol/ L 22.0-3 1.0 Not Available [facility] [address] [facility] 1, [place], [address], 02/14/2024 14:34:21 02/14/20 24 02/14/2024 HbA1c (hemo globi n A1c), blood HbA1c 6.8 Not Available [facility] ([facility]) [address] [place], [address], 02/13/2024 13:34:24 06/25/20 24 06/25/2024 CBC WBC 7.9 x10 4.0-10 .5 Not Available [facility] [address] [facility] 1, [place], [address], 06/25/2024 11:25:58 06/25/20 24 06/25/2024 CBC RBC 5.19 x10 3.50-5 .50 Not Available [facility] [address] [facility] 1, [place], [address], 06/25/2024 11:25:58 06/25/2006/25/2024 CBC HGB 16.3 g/dL 12.0-1 6.0 high Not Available [facility] [address] [facility] 1, [place], [address], 06/25/2024 11:25:58 06/25/2006/25/2024 CBC HCT 48.1 % 37.0-4 7.0 high Not Available [facility] [address] [facility] 1, [place], [address], 06/25/2024 11:25:58 06/25/2006/25/2024 CBC MCV 92.6 fL 80.0-9 9.9 Not Available [facility] [address] [facility] 1, [place], [address], 06/25/2024 11:25:58 06/25/2006/25/2024 CBC MCH 31.4 pg 27.0-3 2.0 Not Available [facility] [address] [facility] 1, [place], [address], 06/25/2024 11:25:58 06/25/2006/25/2024 CBC MCHC 33.8 g/dL 32.0-3 6.0 Not Available [facility] [address] [facility] 1, [place], [address], 06/25/2024 11:25:58 06/25/2006/25/2024 CBC RDW 13.9 % 11.5-1 4.5 Not Available [facility] [address] [facility] 1, [place], [address], 06/25/2024 11:25:58 06/25/2006/25/2024 CBC plt 312.5 x10 140.0- 451.0 Not Available [facility] [address] [place] [address] [facility] 1, [place], [address], 06/25/2024 11:25:58 06/25/2006/25/2024 CBC lymphocytes % 22.0 % 20.0-5 0.0 Not Available [facility] [address] [address], [place], [address], 06/25/2024 11:25:58 06/25/2006/25/2024 CBC granulcytes % 68.1 % 30.0-7 0.0 Not Available [facility] [address] [address], [place], [address], 06/25/2024 11:25:58 06/25/2006/25/2024 CBC monocytes % 7.5 % 2.0-16 .0 Not Available [facility] [address] [address], [place], [address], 06/25/2024 11:25:58 06/25/2006/25/2024 CBC granulcytes# 5.4 x10 Not Kacie ilable [facility] [address] [address], [place], [address], 06/25/2024 11:25:58 06/25/2006/25/2024 CBC lymphocytes # 1.7 x10 Not Available [facility] [address] [address], [place], [address], 06/25/2024 11:25:58 06/25/2006/25/2024 CBC monocytes # 0.6 x10 Not Avai lable [facility] [address] [place] [address] [facility], [place], [address], 06/25/2024 11:25:58 06/25/2006/25/2024 CMP (FEMA LE) glucose 129.0 mg/dL 60.0-9 9.0 high Not Available [facility] [address] [facility] 1, [place], [address], 06/25/2024 11:46:15 06/25/2006/25/2024 CMP (FEMA LE) BUN (blood urea nitrogen) 12.0 mg/dL 10.0-2 6.0 Not Available [facility] [address] [facility] 1, [place], [address], 06/25/2024 11:46:15 06/25/2006/25/2024 CMP (FEMA LE) creatinine (serum) 0.7 mg/dL 0.4-1. 5 Not Available [facility] [address] [address], [place], [address], 06/25/2024 11:46:15 06/25/2006/25/2024 CMP (FEMA LE) BUN/creatini ne ratio 16.44 ratio Not Available [facility] [address] [address], [place], [address], 06/25/2024 11:46:15 06/25/2006/25/2024 CMP (FEMA LE) eGFR calculated 84.8 Not Available [facility] [address] [address], [place], [address], 06/25/2024 11:46:15 06/25/2006/25/2024 CMP (FEMA LE) total protein 7.6 g/dL 6.0-8. 5 Not Available [facility] [address] [address], [place], [address], 06/25/2024 11:46:15 06/25/2006/25/2024 CMP (FEMA LE) total bilirubin 0.6 mg/dL 0.2-1. 3 Not Available [facility] [address] [place], [address], 06/25/2024 11:46:15 06/25/20 24 06/25/2024 CMP (FEMA LE) albumin 4.5 g/dL 3.5-5. 5 Not Available [facility] [address] [facility], [place], [address], 06/25/2024 11:46:15 06/25/2006/25/2024 CMP (FEMA LE) globulin 3.[address] [facility] [address] [place] [address] [facility] 1, [place], [address], 06/25/2024 11:46:15 06/25/2006/25/2024 CMP (FEMA LE) AST (SGOT) 27.0 U/L 0.0-46 .0 Not Available [facility] [address] [place] [address] [facility] 1, [place], [address], 06/25/2024 11:46:15 06/25/2006/25/2024 CMP (FEMA LE) altv (SGPT) 36.0 U/L 13.0-6 9.0 normal Not Available [facility] [address] [place] [address] [facility] 1, [place], [address], 06/25/2024 11:46:15 06/25/2006/25/2024 CMP (FEMA LE) A/G ratio 1.5 ratio Not Available [facility] [address] [place] [address] [facility] 1, [place], [address], 06/25/2024 11:46:15 06/25/2006/25/2024 CMP (FEMA LE) ALP phos 103.0 U/L 30.0-1 40.0 normal Not Available [facility] [address] [place] [address] [facility] 1, [place], [address], 06/25/2024 11:46:15 06/25/2006/25/2024 CMP (FEMA LE) calcium 9.3 mg/dL 8.4-10 .5 Not Available [facility] [address] [facility] 1, [place], [address], 06/25/2024 11:46:15 06/25/2006/25/2024 CMP (FEMA LE) sodium 142.0 mmol/ L 136.0- 145.0 Not Available [facility] [address] [facility] 1, [place], [address], 06/25/2024 11:46:15 06/25/2006/25/2024 CMP (FEMA LE) potassium 4.0 mmol/ L 3.5-5. 1 Not Available [facility] [address] [facility] 1, [place], [address], 06/25/2024 11:46:15 06/25/2006/25/2024 CMP (FEMA LE) chloride 103.0 mmol/ L 98.0-1 10.0 normal Not Available [facility] [address] [facility] 1, [place], [address], 06/25/2024 11:46:15 06/25/2006/25/2024 CMP (FEMA LE) C02 33.0 mmol/ L 22.0-3 1.0 high Not Available [facility] [address] [facility] 1, [place], [address], 06/25/2024 11:46:15 06/25/2006/25/2024 CMP (FEMA LE) anion gap 6.0 calc Not Available [facility] [address] [facility] 1, [place], [address], 06/25/2024 11:46:15 06/25/2006/25/2024 CMP (FEMA LE) osmolality 294.5 calc Not Available [facility] [address] [facility] 1, [place], [address], 06/25/2024 11:46:15 06/25/20 24 06/25/2024 LIPID PROFI LE (FEMA LE) cholesterol 273.0 mg/dL 0.0-20 0.0 high Not Available [facility] [address] [facility] 1, [place], [address], 06/25/2024 11:46:18 06/25/20 24 06/25/2024 LIPID PROFI LE (FEMA LE) trig 166.0 mg/dL 0.0-15 0.0 high Not Available [facility] [address] [facility] 1, [place], [address], 06/25/2024 11:46:18 06/25/20 24 06/25/2024 LIPID PROFI LE (FEMA LE) HDL - direct 82.0 mg/dL >40.0 Not Available [facility] [address] [address], [place], [address], 06/25/2024 11:46:18 06/25/20 24 06/25/2024 LIPID PROFI LE (FEMA LE) VLDL - direct 33.2 mg/dL Not Available [facility] [address] [address], [place], [address], 06/25/2024 11:46:18 06/25/20 24 06/25/2024 LIPID PROFI LE (FEMA LE) LDL - direct 157.8 mg/dL 0.0-13 0.0 high Not Available [facility] [address] [facility] 1, [place], [address], 06/25/2024 11:46:18 06/25/20 24 06/25/2024 COLOG UARD cologuard result reportable POSITI VE negati ve abnormal POSIT EBER TEST RESUL T. A posit eber Colog uard resul t shoul d be follo wed with a colon oscop y or visua l exami natio n of the colon . The rosalind l value (refe rence range ) for this assay is negat eber. TEST DESCR IPTIO N: [place] site algor ithmi c nawaf sis of stool DNA-b iokathi kers with hemog lobin immun oassa y. Quant itati ve value s of indiv idual bioma rkers are not repor table and are not assoc iated with indiv idual bioma rker resul t refer ence range s. Colog uard is inten ded for color ectal cance r scree shyla of adult s of eithe r sex, 45 years or older , who are at the medical center for color ectal cance r (CRC) . Colog uard has been appro callie for use by the [place]. FDA. The perfo rmanc e of Colog uard was estab lishe d in a cross secti onal study of the medical center adult s aged 50-84 . Colog uard perfo rmanc e in patie nts ages 45 to 49 years was estim ated by sub-g roup nawaf sis of near- age group s. Colon oscop ies perfo rmed for a posit eber resul t may find as the most clini juan luis signi fican t lesio n: color ectal cance r [4.0% ], advan kamari adeno ma (incl uding sessi le karthik drea polyp s great er than or equal to 1cm diame ter) [20%] or non- advan kamari adeno ma [31%] ; or no color ectal neopl jack [45%] . These estim ates are deriv ed from a prosp ectiv e cross -sect ional scree shyla study of 10,00 0 indiv idual s at [facility] risk for color ectal cance r who were scree jose with both Colog uard and colon oscop y. (Suki Angel al, N Engl J Med 2014; 370(1 4):12 86-12 97.) Colog uard may produ ce a false negat eber or false posit eber resul t (no color ectal cance r or preca ncero us polyp prese nt at colon oscop y follo w up). A negat eber Colog uard test resul t does not guara ntee the absen ce of CRC or advan kamari adeno ma (pre- cance r). The curre nt Colog uard scree shyla inter aleksandra is every 3 years . (Amer ican Cance r Socie ty and U.S. Multi -Soci ety Task Force ). Colog uard perfo rmanc e data in a 10,00 0 patie nt pivot al study using colon oscop y as the refer ence metho d can be acces sed at the follo wing locat ion: www.e xactl abs.c om/re linda . Addit ional descr iptio n of the Colog uard test proce ss, warni ngs and preca ution s can be found at www.c caitlin yu.c om. Not Available [facility] [address], [place], [address], 07/02/2024 18:03:06 07/04/20 24 07/04/2024 HbA1c (hemo globi n A1c), blood A1C 6.9 Not Available [facility] ([facility]) [address] [place], [address], 07/04/2024 11:42:01 07/20/20 24 07/20/2024 colon oscop y, with remov al of tumor , polyp or lesio n (PROC ) No observ ation record ed. [email or web address] [facility] [address] , [place], [address], 07/23/2024 09:01:51 07/30/20 colon oscop y proce dure (PROC ) No observ ation record ed. [email or web address] Not Available 2023 13:15:53 Result Notes None recorded. Problems Name Problem SNOMED Code Status Onset Date Resolution Date Notes Provider Name and Address Organization Details Recorded Time Anxiety 43350309 Active 2021 anxiety; claustrop hobia also; 2 9:39AM by Kay Rubio RN, Office Visit; Promoted; acuity set as *; [facility] 4 12:02:25 Insomnia 914398859 Active 2021 [facility] 4 12:02:52 Hyperlipi demia 70891300 Active 2021 [facility] 4 12:02:46 Hyperchol esterolem ia 14033990 Active 2022 ROBERT GONZALEZ [facility] 4 12:02:34 Hyperglyc emia due to type 2 diabetes mellitus 136392984475 109 Active 2022 [facility] 4 12:02:39 Problem Notes None recorded. Procedures Surgical History Date Name Laterality Status Provider Name and Address Organization Details Recorded Time 4 Colonoscopy completed KYM FREGOSO [facility] 07/20/2024 18:02:03 4 screening for malignant neoplasm of colon completed ROBERT CARLOS [facility] 07/04/2024 14:10:53 Imaging Results None recorded. Procedure Notes None recorded. Medical Equipment None Reported. Allergies Allergen ID Allergen Name Allergen Category Reaction Reaction Severity Criticality Documentation Date Start Date Code Code System Note Provider Name and Address Organization Details Recorded Time 72273 atorvasta tin calcium propylene glycol solvate Not available other Not available Not available 03/26/2023 06439 93 RxNorm React ion: stati ns make her hurt all over; Comme nt: Recor ded 06/21 9:39A M by Maribel li RN, Offic e Visit ; Promo drea; Signi julianna ce: *; Reaso n: Drug aller gy; ; Not Available [facility] 07/29/202 3 02:24:30 65375 penicilli n V potassium medicatio n rash Not available Not available 03/26/202398482 5 RxNorm React ion: Rash; Comme nt: Recor ded 06/21 9:39A M by Maribel li RN, Offic e Visit ; Promo drea; Signi ficnoel ce: *; Reaso n: Drug aller gy; ; Not Available [facility] 3 02:24:30 68320 doxycycli ne hyclate medicatio n rash Not available Not available 03/26/2023 16345 RxNorm React ion: Pruri tus, Rash; Comme nt: Recor ded 06/21 9:39A M by Maribel li RN, Offic e Visit ; Promo drea; Signi julianna ce: *; Reaso n: Drug aller gy; ; Not Available [facility] 3 02:24:31 Medications Name Sig Start Date Stop Date Status Note LastModified by Organization Details LastModified Time valacyclo vir 500 mg tablet Take 1 tablet by mouth once daily active Not Available Not Available No t Available citalopra m 20 mg tablet TAKE 1 TABLET BY MOUTH ONCE DAILY active Not Available Not Available No t Available OneTouch Ultra Test strips USE 1 STRIP TO CHECK GLUCOSE ONCE DAILY active Not Available Not Available No t Available hydrochlo rothiazid e 12.5 mg capsule Take 1 capsule every day by oral route for 90 days. 2022 active Not Available Not Available Not Avai lable rosuvasta tin 10 mg tablet TAKE 1 TABLET BY MOUTH ONCE DAILY active Not Available Not Available No t Available OneTouch UltraSoft Lancets two times daily 2022 active cs/smf; Recorded 09/09/19 10:34AM by Leanna Yanes al Summary; Refill Quantity : 100; Strip; Not Available Not Available Not Available ibuprofen two times daily 10/19 completed 0; Recorded 06/21/20 9:39AM by Laquita Rubio RN, Office Visit; Not Available Not Available Not Available hydrochlo rothiazid e every other day 10/19 completed cs/smf; 39154; Recorded 09/13/19 23 7:29AM by Laquita Rubio RN (Authori jody through Andrew Vargas DO), Annotati on/Adden dum; Mail Order Quantity : 90 Capsule; Mail Order Days: 90 Days; Refill Quantity : 0; Not Available Not Available Not Available Crestor three times weekly 10/19 completed cs/smf; 97977; Recorded 06/24/20 22 11:43AM by Laquita Rubio RN (Authori jody through Andrew Vargas DO), Annotati on/Adden dum; Mail Order Quantity : 90 Tablet; Mail Order Days: 90 Days; Refill Quantity : 0; Not Available Not Available Not Available OneTouch Delica Lancets two times daily 2022 active E11.9 cs/smf; Recorded 09/27/19 23 7:06AM by Laquita Rubio RN, Historic al Summary; Refill Quantity : 100; Each; Not Available Not Available Not Available OneTouch Verio test strips two times daily 2022 active E11.9 cs/smf; Recorded 09/27/19 23 7:04AM by Laquita Rubio RN, Historic al Summary; Refill Quantity : 100; Each; Not Available Not Available Not Available Farxiga 5 mg tablet Take 1 tablet by mouth once daily for 90 days 2023 active Not Available Not Available Not Avai lable Farxiga daily 10/19 completed Recorded 06/21/20 22 9:45AM by Andrew Vargas DO, Office Visit; Mail Order Quantity : 90 Tablet; Refill Quantity : 90; Tablet; Not Available Not Available Not Available Jardiance 10 mg tablet Take 1 tablet every day by oral route. active Not Available Not Available No t Available Ozempic 0.25 mg or 0.5 mg (2 mg/1.5 mL) subcutane ous pen injector Inject 0.25 mg every week by subcutan eous route. 10/19 completed Not Available Not Available Not Available Vitals Date Recorded Body height Body mass index (BMI) Body weight Respiratory rate Heart rate Oxygen saturation Systolic And Diastolic Provider Name and Address Organization Details Last Updated DateTime 4 162.56 cm 35 kg/m2 14011.8 4 g 20 /min 85 /min 94 % 140/66 mm[Hg] KAY RUBIO [facility] 4 11:04:26 Date Recorded Body height Body mass index (BMI) Body weight Respiratory rate Oxygen saturation Heart rate Systolic And Diastolic Provider Name and Address Organization Details Last Updated DateTime 4 162.56 cm 33.3 kg/m2 62853.9 2 g 18 /min 99 % 75 /min 140/72 mm[Hg] KAY RUBIO [facility] 4 10:31:10 Date Recorded Body height Body mass index (BMI) Body weight Oxygen saturation Heart rate Provider Name and Address Organization Details Last Updated DateTime 06/14/2024 162.56 cm 32.3 kg/m2 39140.37 g 97 % 68 /min ROBERT GONZALEZ [facility] 4 11:59:26 Date Recorded Body height Body mass index (BMI) Body weight Respiratory rate Heart rate Oxygen saturation Systolic And Diastolic Provider Name and Address Organization Details Last Updated DateTime 4 162.56 cm 33.5 kg/m2 18627.5 1 g 20 /min 79 /min 98 % 138/76 mm[Hg] KAY RUBIO [facility] 4 09:59:05 Social History Question Answer Notes LastModified by Organizat ion Details LastModified Time Tobacco Smoking Status Former Smoker KAY RUBIO [facility] 05/18/2023 10:07:04 Are You Blind Or Do You Have Difficulty Seeing? No [email or web address] Information not available 05/18/2023 Are You Deaf Or Do You Have Serious Difficulty Hearing? No [email or web address] Information not available 05/18/2023 When Did You Quit Smoking? 16+yearssinc elastcigaret te Information not available 05/18/2023 What Was The Date Of Your Most Recent Tobacco Screening? 06/14/2024 Information not available 06/14/2024 What Is Your Current Pack Years? 20-29padudley rs Information not available 06/14/2024 At What Age Did You Start Smoking Tobacco? 12 Information not available 06/14/2024 How Much Tobacco Do You Smoke? No Information not available 06/14/2024 Has Tobacco Cessation Counseling Been Provided? No [email or web address] Information not available 05/18/2023 How Many Years Have You Smoked Tobacco? 30 Information not available 06/14/2024 Do You Have Difficulty Walking Or Climbing Stairs? No [email or web address] Information not available 05/18/2023 Sex: Female Functional Status Question Answer Note LastModified by Organizat ion Details LastModified Time Do you use any illicit or recreational drugs? No [email or web address] Information not available 05/18/2023 Do you or have you ever used any other forms of tobacco or nicotine? No [email or web address] Information not available 05/18/2023 What is your level of alcohol consumption? None [email or web address] Information not available 05/18/2023 Are you able to walk independently without assistance or assistive devices? YESWOREST [email or web address] Information not available 05/18/2023 Do you have difficulty doing errands alone? No [email or web address] Information not available 05/18/2023 Are you able to care for yourself independently? Yes [email or web address] Information not available 05/18/2023 Do you have difficulty dressing, bathing, grooming, or toileting? No [email or web address] Information not available 05/18/2023 Do you or have you ever used any nicotine-free cigarettes, vape, or chewing tobacco? No Information not available 06/14/2024 Mental Status Question Answer Note LastModified by Organization D etails LastModified Time Do you have difficulty concentrating, remembering or making decisions? No [email or web address] Information no t available 05/18/2023 Family History Nothing Reported. Medical History No medical history recorded. Gynecological HistoryNo gynecological history recorded. Obstetrics History GPAL:G 0 P 0 0 0 0 Immunizations Vaccine Type Date Status Note Provider Nam e and Address Organization Details Recorded Time COVID-19, mRNA, LNP-S, PF, 100 mcg/0.5mL dose or 50 mcg/0.25mL dose 1 completed KODY HERNANDEZ, [address], [id number], [facility] 06/14/2024 12:26:44 COVID-19, mRNA, LNP-S, PF, 100 mcg/0.5mL dose or 50 mcg/0.25mL dose 1 completed KODY HERNANDEZ, [address], [address], [facility] 06/14/2024 12:26:44 COVID-19, mRNA, LNP-S, PF, 100 mcg/0.5mL dose or 50 mcg/0.25mL dose 2 completed KODY HERNANDEZ, [address], [address], [facility] 06/14/2024 12:26:44 COVID-19, mRNA, LNP-S, PF, 100 mcg/0.5mL dose or 50 mcg/0.25mL dose 1 completed KODY HERNANDEZ, [address], [address], [facility] 06/14/2024 12:26:44 COVID-19, mRNA, LNP-S, bivalent, PF, 50 mcg/0.5 mL or 25mcg/0.25 mL dose 2 completed KODY HERNANDEZ, [address], [address], [facility] 06/14/2024 12:26:44 Influenza, split virus, quadrivalent, PF 1 completed KODY HERNANDEZ, [address], [address], [facility] 06/14/2024 12:26:44 Influenza, split virus, quadrivalent, PF 2 completed KODY HERNANDEZ, [address], [address], [facility] 06/14/2024 12:26:44 Influenza, high-dose, quadrivalent, PF 3 completed KODY HERNANDEZ, [address], [address], [facility] 06/14/2024 12:27:27 COVID-19, mRNA, LNP-S, PF, 50 mcg/0.5 mL 3 completed KODY HERNANDEZ, [address], [address], [facility] 06/14/2024 12:27:27 Influenza, adjuvanted, trivalent, PF 4 completed KODY HERNANDEZ, [address], [address], [facility] 07/12/2024 09:51:52 Influenza, split virus, trivalent, preservative 0 completed Not Available [facility] 03/26/2023 02:24:54 pneumococcal polysaccharide PPV23 0 completed Not Available [facility] 03/26/2023 02:24:55 Influenza, split virus, trivalent, preservative 6 completed Not Available [facility] 03/26/2023 02:24:55 Tdap 7 completed Not Available [facility] 03/26/2023 02:24:55 Past Encounters Encounter ID Performer Location Encounter Start Date Encounter Closed Date Diagnosis/Indication Diagnosis SNOMED-CT Code Diagnosis ICD10 Code Diagnosis IMO Codes Diagnosis Note [id number] Andrew Vargas DO [facility] ([facility]) [address] [place] [address] 05/18/2023 09:58:16 05/18/2023 12:15:22 Hyperglycemia due to type 2 diabetes mellitus [id number] 27679 E11.65 Hypercholesterolemia 136 88840 E78.00 Middle ear effusion 1004 006057 H74.8X9 she will use flonase [id number] Andrew Vargas DO [facility] ([facility]) [address] [place] [phone] 09/14/2023 09:01:10 09/15/2023 11:44:31 Hyperglycemia due to type 2 diabetes mellitus [id number] 37611 E11.65 [id number] Andrew Vargas DO [facility] ([facility]) [address] [place] [address] 10/19/2023 10:52:11 10/19/2023 11:27:05 Hyperglycemia due to type 2 diabetes mellitus [id number] 29531 E11.65 [id number] Andrew Vargas DO [facility] ([facility]) [address] [place] [address] 02/20/2024 10:24:43 02/20/2024 11:00:26 Hyperglycemia due to type 2 diabetes mellitus 3904709474 79325 E11.65 Hypercholesterolemia 136 86788 E78.00 Pain of le ft hip joint 3865490532 46072 M25.250 [id number] IRLANDA HOGAN [facility] ([facility]) [address] [place] [phone] 06/14/2024 11:36:26 06/14/2024 13:31:05 Screening for osteoporosis 134107363 Z13.820 [facility] examination 784538121 Z00.00 Administra tion of influenza vaccine 23127868 Z23 Type 2 severo betes mellitus without complication 494694885 E11.9 Screening for malignant neoplasm of colon 871837195 Z12.11 Morbid obesity 048013943 E66.01 Diet/exerc ise. [id number] Andrew Vargas DO [facility] ([facility]) [address] [place] [phone] 07/04/2024 09:52:25 07/04/2024 10:52:19 Type 2 diabetes mellitus without complication 822519448 E11.9 Hyperglyce macie due to type 2 diabetes mellitus 1063510517 16979 E11.65 Anxiety 94015516 F41.9 Screening for malignant neoplasm of colon 048833945 Z12.11 Hypercholesterolemia 136 43805 E78.00 Health Concerns Section Related Observation LastModified by Organization Detai ls LastModified Time None Recorded Concern Status LastModified by Organization Details LastModified Time None Recorded Advance Directives Directive None Recorded Payers Insurance Date Sequence Insurance Name Policy Number Policy Hunt Covered Member ID Hunt Member ID Guarantor Name 07/01/2024 [place] - [facility] (MEDICARE) Lashell Vanessa [id number] Lashell Vanessa 02/13/2024 1 [id number] [id number] Lashell Vanessa [id number] Lashell Vanessa 07/01/2024 1 [place] Lashell Vanessa [id number] Lashell Vanessa 07/24/2024 2 [employer] (MEDICARE SUPPLEMENT) Lashell Vanessa [id number] Lashell Vanessa Notes Date Note Type Note Provider Name and Address Organization Details Recorded Time 10/19/2023 text/html DiabetesReported by PatientHPIFor duration, patient reportschronic. For control, patient reportsusually well controlled. For compliance, patient reportscompliant with medications.ROS as noted in the [facility] Andrew Vargas DO [address] [place] [address], [phone], [facility] 10/19/2023 11:27:47 02/20/2024 text/html DiabetesReported by PatientHPIFor duration, patient reportschronic. For control, patient reportsusually well controlled. For compliance, patient reportscompliant with medications.ROS as noted in the [facility] Andrew Vargas DO [address] [place] [address], [phone], [facility] 02/20/2024 10:50:28 06/14/2024 text/html Medicare Annual Wellness VisitReported by PatientSocial/Behavior al HistoryFor diet and nutrition, patient reportshealthy diet,discussed portion control, anddiscussed diet improvement. For fracture risk, patient reportsno history of fractures. For physical activity, patient reportsexercises on a regular basisanddiscussed exercise habits.Mental Status:For depression risk, patient reportsnever feels sad, empty, or tearfulandno loss of interest in activities.Functional AbilityFor hearing, patient reportsdifficulty hearing over background noise. For home safety, patient reportsdoes not have hand bars in the bathroom/showerbut reportsno unsafe jimena hazzards,no unsafe stairs,use of seatbelts, andgood lighting in the home. For vision, patient reportsno vision problems. For activities of daily living, patient reportsable to bathe with limited or no assistance,able to contol urination and bowels,able to dress with limited or no assistance,able to feed self with limited or no assistance,able to get out of chair or bed with limited or no assistance,able to groom with limited or no assistance, andable to toilet with limited or no assistance. For instrumental activities of daily living, patient reportsable to do house work with limited or no assistance,able to grocery shop with limited or no assistance,able to manage medications with limited or no assistance,able to manage money with limited or no assistance,able to prepare meals with limited or no assistance, andable to use the phone with limited or no assistance. For falls risk assessment, patient reportsno frequent falls while walking.ROS as noted in the [facility] IRLANDA HOGAN [address] [place], [address], [facility] 07/12/2024 09:54:16 07/04/2024 text/html DiabetesReported by PatientHPIFor duration, patient reportschronic. For control, patient reportsusually well controlled. For compliance, patient reportscompliant with medications.ROS as noted in the [facility] Andrew Vargas DO [address] [place], [phone], [facility] 07/04/2024 10:48:35 OBGyn Episode No OBEpisode recorded.
[2025-08-05] MEDS: chlorhexidine gluconate 0.12% Btl 473 mL 30 ML MUCOUS MEM (22:53)
[2025-08-06] MEDS: ceFAZolin 2,000 MG in sodium chloride 0.9% (plus) 50 ML 100 MG IV ×2 (00:43→08:02)
[2025-08-06 00:52] VITALS: BP 102/59; PULSE 84; RESP 16; TEMP 36.2; O2SAT 95
[2025-08-06 03:51] VITALS: BP 110/61; RESP 16
[2025-08-06] MEDS: oxyCODONE 5 mg IR Tab/Cap PO ×2 (03:51→10:55)
[2025-08-06] MEDS: multivitamin therapeutic Tablet 1 TAB PO (04:24)
[2025-08-06] MEDS: ATORVASTATIN 20 MG TABLET PO (04:24)
[2025-08-06] MEDS: calcium carb-vit d 600mg/400unit 1 Tablet 1 EACH PO (04:25)
[2025-08-06] MEDS: mupirocin oint 22 gm 1 APPLIC NASAL (04:26)
[2025-08-06] MEDS: chlorhexidine gluconate 0.12% Btl 473 mL 30 ML MUCOUS MEM (04:28)
[2025-08-06] MEDS: acetaminophen 1,000 MG/100 ML PIGGYBACK 400 MG IV (05:26)
[2025-08-06 05:30] LABS: Hematocrit 36.7 % (36-47); Hemoglobin 11.70 g/dL (11.27-16.99); Mean Corpuscular HGB Conc 31.9 g/dL (30-55); Mean Corpuscular Hemoglobin 30.3 pg (27-33); Mean Corpuscular Volume 95.1 fl (85-98); Nucleated Red Blood Cells % 0 %; Platelet Count 229 10^3/cmm (157-399); Red Blood Count 3.86 10^6/uL (3.85-5.65); White Blood Count 9.80 10^3/uL (3.29-11.43)
--- NOTE | 2025-08-06 05:42 | PC.NURSE ---
Kaur catheter removed per provider orders. Approximately 350 mL of pale yellow urine noted in drainage bag prior to removal. Catheter balloon fully deflated and catheter removed with no complications. Catheter fully intact and pt showed no signs of discomfort and tolerated procedure well. Education provided on expected urge to void, importance of notifying staff of first void and measuring it, and monitoring for urinary retention.
[2025-08-06 06:00] VITALS: BMI 29.2
[2025-08-06 06:06] VITALS: BP 107/64; PULSE 82; RESP 18; TEMP 36.7; O2SAT 93
[2025-08-06 06:13] LABS: Alanine Aminotransferase 27 U/L (0-33); Albumin Level 3.2 g/dL (3.5-5.2); Alkaline Phosphatase 80 U/L (35-105); Anion Gap 10.8 (5-19); Aspartate Amino Transferase 32 U/L (0-32); Blood Urea Nitrogen 10 mg/dL (8-23); Calcium 8.4 mg/dL (8.5-10.5); Carbon Dioxide 24 mmol/L (22-29); Chloride 107 mmol/L (98-107); Creatinine Clr Calc Pharmacy 68.5829; Globulin 2.3 g/dL (1.3-4.6); Glucose 130 mg/dL (65-115); Magnesium 2.1 mg/dL (1.7-2.3); Osmolality Calculated 287 mOsm/kg (285-295); Potassium 3.8 mmol/L (3.5-5.1); Sodium 138 mmol/L (136-145); Total Protein 5.5 g/dL (6.6-8.7)
--- NOTE | 2025-08-06 06:40 | PC.NURSE ---
Pt refused [facility] med this morning per OCT. Dr. Spaulding notified and physician notification put in. Pt educated on importance of med and its purpose.
--- NOTE | 2025-08-06 06:52 | P.PN_ITS ---
Subjective 2 Subjective: No events overnight. Patient has remained hemodynamically stable and afebrile. Vitals/I&O/Wt Last Vital Signs Temp 98.1 F 08/06/25 06:06 Pulse 82 08/06/25 06:06 Resp 18 08/06/25 06:06 BP 107/64 08/06/25 06:06 Pulse Ox 93 08/06/25 06:06 O2 Del Method Room Air 08/06/25 06:06 08/05/25 08/05/25 08/06/25 14:59 22:59 06:59 Intake Total 2049 / 2049 370 / 2420 1150 / 3570 Output Total 400 / 400 1300 / 1700 350 / 2050 Balance 1650 / 1650 -930 / 720 800 / 1520 Weight last 48 hrs Weight 77.111 kg Weight 77.111 kg Weight 77.111 kg Physical Exam 2 Narrative: General: No acute distress, AO x3 HEENT: PERRLA, pupils bilaterally equal and reactive Chest: Normal vesicular breath sounds, no added sounds, equal good air entry bilaterally CVS: S1-S2 regular, no murmurs, no tachycardia, no gallops, no rubs Abdomen: Soft, nontender, no organomegaly, bowel sounds present Neuro: No focal deficits, no facial deformity, AO x3, power 5/5 in all limbs Urinary Catheter Management: Kaur Latex Free: Cath Placed During This Visit: yes, but has since been removed by the nurse Reason for Continuing Indwelling Catheter: Required Immobilization for Trauma or Surgery or Anesthesia Urinary Catheter Date of Insertion: 08/05/25 Urinary Catheter Time of Insertion: 09:00 Date Urinary Catheter Removed: 08/06/25 Time Urinary Catheter Discontinued: 05:41 Data 08/06/25 05:16 08/06/25 05:16 A&P Assessment and plan 1. Encounter for postoperative care: Post left hip arthroplasty. Perioperative antibiotic, pain management, physical therapy, anticoagulation as per primary team. Monitor hemoglobin. 2. S/P total left hip arthroplasty: 3. Mixed hyperlipidemia: Check lipid panel. Continue with home dose of rosuvastatin. 4. Type 2 diabetes mellitus with hyperglycemia, without long-term current use of insulin: Appreciate recent A1c of 5.3. Patient takes Mounjaro at home. Carb consistent diet for now. Hold off on insulin. Plan: Full code Carb consistent diet Eliquis for DVT prophylaxis Plan for the day: Patient stable to be discharged from medical standpoint. She can go home on her home dose of rosuvastatin. Patient should follow-up with her PCP within next 2 weeks. Thank you for involving us in care of Mr. Vanessa. Please call with any questions. PDMP PDMP Reviewed: Not Reviewed Attestations 2 Medical Necessity Statement*: As per primary team Coding Level of Care Code 17918 Straight Forward/Low MDM includes number and complexity of problems actively addressed during encounter, amount and/or complexity of data reviewed/ordered [ previous or external records, resulted lab(s)/test(s), ordered lab(s)/test(s), independent historian, independent test interpretation and other healthcare professional discussion] and described risk of complication, morbidity or mortality of management as documented Diagnoses Encounter for postoperative care Z48.89 S/P total left hip arthroplasty Z96.642 Mixed hyperlipidemia E78.2 Hyperlipidemia type: mixed hyperlipidemia Type 2 diabetes mellitus with hyperglycemia, without long-term current use of insulin E11.65 Diabetes mellitus complication status: with hyperglycemia Diabetes mellitus residential insulin use: without residential use Diabetes mellitus type: type 2
[2025-08-06 07:45] VITALS: BP 100/62; PULSE 81; RESP 16; TEMP 36.7; O2SAT 92
[2025-08-06] MEDS: APIXABAN 2.5 MG TABLET PO (08:02)
--- NOTE | 2025-08-06 10:45 | PC.CHAP ---
Pastoral Care Encounter/Spiritual Assessment Type of Contact [] Declined data integration developer visit [] Patient/Family/Request visit [] Outpatient visit [] Follow-up visit [] Physician referral [] Code/Alert [x] Routine visit [] Staff referral [] Actively dying [] Patient sleeping [] Family support [] [] Out of room [] Palliative care [] [] Receiving care in room [] Pre-surgical visit [] Trauma [] Long length of stay [] ICU visit [] Other: Relational/Emotional Strength [x] Patient feels connected with others/family/visitors/staff [] Distress [] Loneliness/isolation [] Abandonment Spirituality of Patient [x] Person of Ramandeep [] Attends Episcopalian of their Ramandeep [x] Believes in Prayer [] Reads Bible or Temple materials [] There are Spiritual issues to be addressed Research Programmer Interventions [x] Prayer [x] Active listening [] Non-anxious presence [x] Spiritual/emotional support [] Crisis/trauma care [] Spiritual counseling [] Bereavement support [] Provided bereavement packet [] Provided Bible/devotional materials [] Provided toy/stuffed animal, coloring book to patient or family member [] Provided Communion [] Anointing/Mora [] Salvation [x] Completed spiritual assessment [] Other: Impact on Illness or Injury [] Angry [] Fearful [] Anxious [] Often cries [] Exhaustion [] Unable to work [] Unable to attend yarsani [] Unable to walk/stand [] Unable to read [] Unable to drive [] Unable to eat/drink [] Unable to sleep [] Unable to be with family [] Patient intubated [] Other: Summary Time spent with patient 5 min
[2025-08-06 10:55] VITALS: RESP 16; O2SAT 92
[2025-08-06 12:00] VITALS: BP 113/71; PULSE 85; RESP 18; TEMP 36.7; O2SAT 97
--- NOTE | 2025-08-06 13:46 | PM.DCS ---
Discharge Providers Date of Admission: 08/05/25 12:16 Date of Discharge: August 06, 2025 Attending Provider at Admission: Jeremiah Pandey DO Attending Provider at Discharge: Jeremiah Pandey DO Consults: Hospitalist?Dr. Duval Primary Care Provider: Kelsea Coelho MD Diagnoses at Discharge Discharge Diagnosis 1. Encounter for postoperative care: 2. S/P total left hip arthroplasty: 3. Mixed hyperlipidemia: 4. 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 Once cleared by anesthesia for surgery subsequently was taken back to the operative suite underwent anesthesia per the anesthesia department and then underwent [left] total hip arthroplasty with Epi robotic assistance posterior approach without any complications. Patient was then subsequently taken back to PACU in stable condition recovering well. Once recovered, patient was then subsequently admitted to the floor postoperatively. Internal medicine was consulted for medical management assistance. Patient weightbearing as tolerated to the left lower extremity, posterior hip precautions. PT/OT. Pain control. DVT prophylaxis. Postoperative antibiotics and TXA. dressing was change as needed. Internal medicine was on board and appreciate their medical management and assistance. No issues during hospitalization stable for discharge on postoperative day 1. Pt was determined on postoperative day [1 ] the patient was stable for discharge from orthopedic as well as internal medicine standpoint. Patient's labs were monitored daily. Patient will receive appropriate pain medication as well as DVT prophylaxis postoperatively. Appropriate discharge instructions as well. Patient was then discharged in stable condition. Patient will discharge home. Pt will follow-up with Orthopedics in the office in 2 weeks. Patient understands and agrees with current plan. All questions answered. Understands there is any issues or concerns and contact the office. Physical Exam Narrative: Left hip examination: Dressings on in place, clean dry and intact. No evidence of saturation. Patient has normal postoperative swelling and tenderness to palpation to the hip. Compartments are soft compressible,'s calf soft and nontender. Sensations intact to light touch distally. Distal pulses are palpable. Patient is able to wiggle toes as well as plantarflex and dorsiflex ankle. Urinary Catheter Management: Kaur Latex Free: Cath Placed During This Visit: yes, but has since been removed by the nurse Reason for Continuing Indwelling Catheter: Required Immobilization for Trauma or Surgery or Anesthesia Urinary Catheter Date of Insertion: 08/05/25 Urinary Catheter Time of Insertion: 09:00 Date Urinary Catheter Removed: 08/06/25 Time Urinary Catheter Discontinued: 05:41 Discharge Data Studies Completed and Pending Completed Studies During Hospitalization Category Date Time Status XR hip LT 2-3V wo/w pel* [id number] Routine Exams 08/05/25 11:08 Completed Pending at discharge Category Date Time Status Complete Blood Count w/Auto AM LABS Lab 08/07/25 04:00 Ordered Complete Blood Count w/Auto AM LABS Lab 08/08/25 04:00 Ordered MAG [Magnesium] AM LABS Lab 08/07/25 04:00 Ordered MAG [Magnesium] AM LABS Lab 08/08/25 04:00 Ordered Radiology Impressions Hip/Pelvis X-Ray 08/05/25 11:08 IMPRESSION: Total left hip arthroplasty without abnormality. Laboratory Results WBC 9.80 10^3/uL (3.29-11.43) 08/06/25 05:16 RBC 3.86 10^6/uL (3.85-5.65) 08/06/25 05:16 Hgb 11.70 g/dL (11.27-16.99) 08/06/25 05:16 Hct 36.7 % (36-47) 08/06/25 05:16 MCV 95.1 fl (85-98) 08/06/25 05:16 MCH 30.3 pg (27-33) 08/06/25 05:16 MCHC 31.9 g/dL (30-55) 08/06/25 05:16 RDW 12.6 % (12.1-15.1) 08/06/25 05:16 Plt Count 229 10^3/cmm (157-399) 08/06/25 05:16 MPV 11.1 fL (7.4-10.4) H 08/06/25 05:16 Neut % (Auto) 78.1 % 08/06/25 05:16 Lymph % (Auto) 10.8 % 08/06/25 05:16 [place] % (Auto) 9.6 % 08/06/25 05:16 Eos % (Auto) 0.8 % 08/06/25 05:16 Baso % (Auto) 0.4 % 08/06/25 05:16 Neut # (Auto) 7.65 10^3/uL (1.8-7.7) 08/06/25 05:16 Lymph # (Auto) 1.1 10^3/uL (0.8-4.8) 08/06/25 05:16 [place] # (Auto) 0.9 10^3/uL (0.2-0.9) 08/06/25 05:16 Eos # (Auto) 0.1 10^3/uL (0.0-0.8) 08/06/25 05:16 Baso # (Auto) 0.0 10^3/uL (0.0-0.1) 08/06/25 05:16 Nucleated RBC % (auto) 0 % 08/06/25 05:16 Nucleated RBCs # 0.0 /100WBC 08/06/25 05:16 Sodium 138 mmol/L (136-145) 08/06/25 05:16 Potassium 3.8 mmol/L (3.5-5.1) 08/06/25 05:16 Chloride 107 mmol/L (98-107) 08/06/25 05:16 Carbon Dioxide 24 mmol/L (22-29) 08/06/25 05:16 Anion Gap 10.8 (5-19) 08/06/25 05:16 BUN 10 mg/dL (8-23) 08/06/25 05:16 Creatinine 0.5 mg/dL (0.5-0.9) 08/06/25 05:16 GFR Calculation 123.1 mL/min (90-130) 08/06/25 05:16 Glucose 130 mg/dL (65-115) H 08/06/25 05:16 POC Glucose 105 mg/dL (70-110) 08/05/25 08:12 Calculated Osmolality 287 mOsm/kg (285-295) 08/06/25 05:16 Calcium 8.4 mg/dL (8.5-10.5) L 08/06/25 05:16 Magnesium 2.1 mg/dL (1.7-2.3) 08/06/25 05:16 Iron 64 ug/dL (37-145) 08/05/25 08:25 TIBC 271 mcg/dl 08/05/25 08:25 % Saturation 23.6 % (20-50) 08/05/25 08:25 Unsat Iron Binding 207 ug/dL (112-347) 08/05/25 08:25 Total Bilirubin 0.3 mg/dL (0.15-1.2) 08/06/25 05:16 AST 32 U/L (0-32) 08/06/25 05:16 ALT 27 U/L (0-33) 08/06/25 05:16 Alkaline Phosphatase 80 U/L (35-105) 08/06/25 05:16 Total Protein 5.5 g/dL (6.6-8.7) L 08/06/25 05:16 Albumin 3.2 g/dL (3.5-5.2) L 08/06/25 05:16 Globulin 2.3 g/dL (1.3-4.6) 08/06/25 05:16 Folate 14.1 ng/mL (4.8-37.3) 08/06/25 05:16 Blood Type O Positive 08/05/25 11:55 Rho(D) Type Rh positive 08/05/25 11:55 Antibody Screen Negative 08/05/25 11:55 Vitals Last Vital Signs Temp 98.1 F 08/06/25 12:00 Pulse 85 08/06/25 12:00 Resp 18 08/06/25 12:00 BP 113/71 08/06/25 12:00 Pulse Ox 97 08/06/25 12:00 O2 Del Method Room Air 08/06/25 12:00 Discharge Plan Discharge Patient Disposition: Home Health Service Condition: Stable Prescriptions: New Eliquis 2.5 mg tablet 2.5 mg PO BID 35 Days Qty: 70 0RF cyclobenzaprine 10 mg tablet 10 mg PO TID PRN (Reason: muscle spasm) 7 Days Qty: 21 0RF calcium carbonate-vitamin D3 [Calcium 600 + D(3)] 600 mg-10 mcg (400 unit) tablet 1 tab PO DAILY 30 Days Qty: 30 0RF cefadroxil 500 mg capsule 500 mg PO BID 7 Days Qty: 14 0RF oxycodone 5 mg tablet 5 mg PO Q6H PRN (Reason: pain postop) 7 Days Qty: 28 0RF Continued rosuvastatin 5 mg tablet 5 mg PO DAILY Qty: 90 3RF nystatin 100,000 unit/gram powder 1 applic topical QID PRN (Reason: skin yeast ) Qty: 60 3RF (DME) blood sugar diagnostic Strip See Rx Instructions .Route Qty: 50 3RF Rx Instructions: As directed; One Touch Ultra 50 to check glucose once daily Mounjaro 15 mg/0.5 mL pen injector 15 mg SUBCUT .qwk Qty: 2 3RF valacyclovir [Valtrex] 500 mg tablet 500 mg PO DAILY Qty: 90 1RF clobetasol 0.05 % ointment See Rx Instructions topical .COMPLEX Rx Instructions: apply to the affected area a thin film, twice a day x 2 weeks, then twice weekly Package Dye Stand Loader OK for DC: Orthopedics and Hospitalist Discharge Order = DC NOW: Discharge Order (Routine); Ordered 08/06/25 Ordered By: Jeremiah Pandey Referrals: [facility] ([facility]) [Outside] Kelsea Coelho MD [Primary Care Provider, [facility]] - 2 weeks Referral Note: We have notified your physician's clinic of the need for a follow-up appointment to be scheduled. If you have not heard from them within the next 2 business days, please call them directly. Jeremiah Pandey DO [Physician, Orthopedics] - 08/20/25 2:15 pm Discharge Diet: Regular Discharge Activity: Limit activity as instructed Patient Instructions: Cefadroxil (By mouth) (Duricef), Cyclobenzaprine (By mouth) (Flexeril, Amrix, Fexmid, FusePaq..., Ondansetron (By mouth) (Zofran, Zofran ODT, Zuplenz), Antacid, Calcium Containing (By mouth) (Caltrate 600, Chewable..., Oxycodone, Slow Release (By mouth), Apixaban (By mouth) (Eliquis), Acute Wound Care (DC), Precautions after Total Joint Replacement Surgery (DC), Total Hip Replacement (DC), Hip Abduction Pillow (DC), Opioid Safety, Post Anesthesia Care, Patient Portal & Adama Instructions Activity Restrictions/Additional Instructions: Ortho DC instructions Edin Dressing--Keep dressing on and dry. Recommend sponge baths but if need to take a shower, disconnect battery pack when showering. Edin dressing will stay on until follow up appt in 2 weeks. The battery pack for the dressing will at 5-7 days. Battery pack can be removed and discarded once batteries . Change small hip wing incision after 7days and replace with new one at that time. Weight-bear as tolerated to operative lower extremity Posterior hip precautions as instructed by physical therapy--avoid hip flexion past 90 degrees, adduction, avoid internal rotation When sleeping or lying in bed in supine position use abduction pillow to prevent legs from crossing midline Ice as needed for pain and swelling Take pain medication as prescribed Take antinausea medication as needed May supplement for pain with Tylenol wdgs-ath-[id number] as needed(1000 mg every 8 hours-do not exceed more than 3000mg in 24-hour period) Recommend mobilization every 2 hours except when sleeping Take antibiotic as prescribed for infection prevention May take muscle relaxer as needed for muscle spasms recommend taking more at night Supplement with Citracal vitamin D for bone health and healing Pain medication can cause constipation. take [id number] stool softeners and or MiraLAX. Take blood thinner as prescribed (Eliquis) Follow-up in the orthopedic office in 2 weeks Contact the office for any questions or concerns Discharge Attestations Time Spent in Discharge Care*: less than 30 min Quality Metrics Clinical Quality Measures [ No reported AMI, CVA or VTE this stay] Coding Level of Care Code Acute Code for Chg Fwd Diagnoses Encounter for postoperative care Z48.89 S/P total left hip arthroplasty Z96.642 Mixed hyperlipidemia E78.2 Hyperlipidemia type: mixed hyperlipidemia Type 2 diabetes mellitus with hyperglycemia, without long-term current use of insulin E11.65 Diabetes mellitus complication status: with hyperglycemia Diabetes mellitus termite exterminator helper insulin use: without termite exterminator helper use Diabetes mellitus type: type 2
== END 2025-08-06 14:40 | disposition home health service (06) ==
LOC: MEDSURG 13:17
PROVIDERS: Physician Assistant; Student in an Organized Health Care Education/Training Program; Admitting Provider Student in an Organized Health Care Education/Training Program; PCP Family Medicine; Visit Provider Student in an Organized Health Care Education/Training Program
PROC: 8E0Y0CZ Robotic Assisted Procedure of Lower Extremity, Open Approach (ICD-10-PCS; CPT 27130; principal; 2025-08-05 10:00)
DX: M16.12 Unilateral primary osteoarthritis, left hip (principal); E11.65 Type 2 diabetes mellitus with hyperglycemia; E78.2 Mixed hyperlipidemia; F41.9 Anxiety disorder, unspecified; Z87.891 Personal history of nicotine dependence
CPT/HCPCS: 27130; 20985; 36415; 36416; 51702; 73502; 80048; 80053; 82746; 82962; 83540; 83550; 83735; 85025; 86850; 86900; 97116; 97161; 97167; 97530; C1713; C1776; G0378; J0131; J0690; J1885; J2250; J2704; J3373; J7030; J7120; J9999

== ENCOUNTER → 2025-08-20 13:59 | Outpatient (BNVA) | payer MEDICARE, OTHER, SELFPAY | PROVIDERS: PCP Family Medicine; Visit Provider Student in an Organized Health Care Education/Training Program | DX: Z96.642 Presence of left artificial hip joint (principal); M25.552 Pain in left hip | CPT/HCPCS: 73502; 99024 ==